=== PATIENT | male | born 1935 | race Caucasian/White ===

== ENCOUNTER 2017-06-20 22:12 | Emergency (ER) | payer MEDICARE, BC ==
[2017-06-20 22:18] VITALS: BP 169/74
[2017-06-20] MEDS ORDERED: Ketorolac 30 MG/ML SDV IM ONE (22:37)
[2017-06-20] MEDS ORDERED: Acetaminophen/HYDROcodone 325-5 MG Tab PO ONE (22:38)
[2017-06-20] MEDS ORDERED: Diazepam 5 MG Tab PO ONE (23:33)
--- NOTE | 2017-06-21 00:14 | EDM.PDOC ---
ED HPI GENERAL MEDICAL PROBLEM - General Chief Complaint: Back Pain or Injury Stated Complaint: MEDICAL [facility]IA [facility] Time Seen by Provider: 06/20/17 22:25 Source of Information: Reports: Patient, EMS Notes Reviewed History Limitations: Reports: No Limitations - History of Present Illness INITIAL COMMENTS - FREE TEXT/NARRATIVE: low back pain radiate to left leg; this is a 81 year old male present to ER via EMS for evaluation. 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 He reports he strained his back, tried two Tylenol without relief, hurt to sit, last night up all night with muscle spasm, did not want to have another night like that, so called Ambulance to transport to ER . denies any fever, chills, nausea, vomiting, diarrhea, chest pain or shortness of breath. 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 left lower back Pain Score (Numeric/FACES): 2 - Related Data Allergies Allergy/AdvReac Type Severity Reaction Status Date / Time No Known Allergies Allergy Verified 06/20/17 22:28 Home Meds: Home Meds Ascorbic Acid [Vitamin C] 500 mg PO DAILY 03/10/16 [History] Aspirin [Adult Low Dose Aspirin EC] 81 mg PO DAILY 03/10/16 [History] Calcium Carbonate [Calcium] 600 mg PO DAILY 03/10/16 [History] Glucosamine/Chondroitin/Vit D3 [Pa Rvtevjss-Whnbeq-Wkk D3 Tab] 1 each PO DAILY 03/10/16 [History] Krill/Sandwich-3/Dha/Epa/Lipids [Krill Oil 300 mg Softgel] 1 each PO DAILY [History] Multivitamin [Multi-Vitamin Daily] 1 each PO DAILY 03/10/16 [History] amLODIPine Besylate [Amlodipine Besylate] 10 mg PO DAILY 03/10/16 [History] atorvaSTATin [Lipitor] 10 mg PO BEDTIME 03/10/16 [History] Past Medical History HEENT History: Reports: Cataract Cardiovascular History: Reports: Aneurysm, High Cholesterol, Hypertension Other Cardiovascular History: chronic distal aortic occlusion PVD Respiratory History: Reports: PE Genitourinary History: Reports: BPH Other Genitourinary History: Frequent night voiding. Musculoskeletal History: Reports: Back Pain, Chronic Endocrine/Metabolic History: Reports: Other (See Below) Other Endocrine/Metabolic History: elevated fasting BS - Infectious Disease History Infectious Disease History: Reports: Measles - Past Surgical History GI Surgical History: Reports: Colonoscopy, Polypectomy Social & Family History - Tobacco Use Smoking Status *Q: Never Smoker Years of Tobacco use: 40 Packs/Tins Daily: 1 Used Tobacco, but Quit: Yes Month Tobacco Last Used: January Second Hand Smoke Exposure: No - Caffeine Use Caffeine Use: Reports: Coffee, Soda - Alcohol Use Days Per Week of Alcohol Use: 7 Number of Drinks Per Day: 3 Total Drinks Per Week: 21 - Recreational Drug Use Recreational Drug Use: No - Living Situation & Occupation Living situation: Reports: , with Family Occupation: Retired (lives in [place] with disabled .) ED ROS GENERAL - Review of Systems Review Of Systems: See Below Constitutional: Reports: No Symptoms HEENT: Reports: No Symptoms Respiratory: Reports: No Symptoms Cardiovascular: Reports: No Symptoms Endocrine: Reports: No Symptoms GI/Abdominal: Reports: No Symptoms : Reports: No Symptoms Musculoskeletal: Reports: Back Pain, Leg Pain, Muscle Pain Skin: Reports: No Symptoms Neurological: Reports: No Symptoms Psychiatric: Reports: No Symptoms Hematologic/Lymphatic: Reports: No Symptoms Immunologic: Reports: No Symptoms ED EXAM, GENERAL - Physical Exam Exam: See Below Exam Limited By: No Limitations General Appearance: Alert, WD/WN, No Apparent Distress Ears: Normal External Exam Nose: Normal Inspection Throat/Mouth: Normal Inspection Head: Atraumatic, Normocephalic Neck: Normal Inspection, Supple, Non-Tender, Full Range of Motion Respiratory/Chest: No Respiratory Distress, Lungs Clear, Normal Breath Sounds Cardiovascular: Regular Rate, Rhythm, No Murmur Peripheral Pulses: 2+: Radial (L), Radial (R) GI/Abdominal: Normal Bowel Sounds, Soft, Non-Tender, No Organomegaly, No Distention, No Abnormal Bruit, No Mass, Pelvis Stable (Male) Exam: Deferred Rectal (Males) Exam: Deferred Back Exam: Normal Inspection, Full Range of Motion, Muscle Spasm (low back with right buttock, muscle spasms noted.) Extremities: Normal Inspection, No Pedal Edema, Normal Capillary Refill, Leg Pain (increased pain with straight leg lift. external rotation of hip. ) Neurological: No Motor/Sensory Deficits Psychiatric: Normal Affect, Normal Mood Skin Exam: Warm Lymphatic: No Adenopathy Course - Vital Signs Last Recorded V/S: Last Vital Signs Temp 35.9 C 06/20/17 22:15 Pulse 75 06/20/17 22:15 Resp 20 06/20/17 22:15 BP 169/74 H 06/20/17 22:15 Pulse Ox 91 L 06/20/17 22:15 - Orders/Labs/Meds Labs: Laboratory Tests 06/20/17 Range/Units 23:29 Urine Color Yellow Urine Appearance Clear Urine pH 6.0 (4.5-8.0) Ur Specific Power 1.015 (1.008-1.030) Urine Protein 100 H (NEGATIVE) mg/dL Urine Glucose (UA) Normal (NEGATIVE) mg/dL Urine Ketones Negative (NEGATIVE) mg/dL Urine Occult Blood Negative (NEGATIVE) Urine Nitrite Negative (NEGAITVE) Urine Bilirubin Negative (NEGATIVE) Urine Urobilinogen Normal (NORMAL) mg/dL Ur Leukocyte Esterase Negative (NEGATIVE) Urine RBC 0-5 (0-5) Urine WBC 0-5 (0-5) Ur Epithelial Cells Rare Amorphous Sediment Not seen Urine Bacteria Few Urine Mucus Not seen Meds: Medications Discontinued Medications Generic Name Dose Route Start Last Admin Trade Name Freq PRN Reason Stop Dose Admin Hydrocodone Bitart/Acetaminophen 1 tab 06/20/17 22:38 06/20/17 22:44 [place] 325-5 Mg PO 06/20/17 22:39 1 tab ONETIME ONE Administration Diazepam 5 mg 06/20/17 23:33 06/20/17 23:43 Valium. PO 06/20/17 23:34 5 mg ONETIME ONE Administration Ketorolac Tromethamine 30 mg 06/20/17 22:37 06/20/17 22:45 Toradol IM 06/20/17 22:38 30 mg ONETIME ONE Administration - Re-Assessments/Exams Free Text/Narrative Re-Assessment/Exam: 06/20/2017 given Toradol 30mg im, Providence 5-325mg; no relief of symptoms given Valium 5mg; symptoms resolved, he is ready for discharge. Departure - Departure Time of Disposition: 00:11 Disposition: Home, Self-Care 01 Condition: Good Clinical Impression: Back pain with left-sided sciatica - Discharge Information Instructions: Sciatica Referrals: PCP,None [Primary Care Provider] - Forms: ED Department Discharge Care Plan Goals: back pain with left sided sciatica -rest -avoid bending, lifting over 10 pounds or twisting for the next 5 days -may use ice or heat -may use over the counter Tylenol or Motrin for pain -Script; Valium 5mg every 8 hours as needed for muscle spasm. Follow up with Primary Care Provider on Thursday for recheck return to ER or Urgent Care if muscle spasms return. - Problem List & Annotations (1) Back pain with left-sided sciatica SNOMED Code(s): 631618562 Code(s): M54.32 - SCIATICA, LEFT SIDE Status: Acute Priority: High - Problem List Review Problem List Initiated/Reviewed/Updated: Yes - Assessment/Plan Plan: back pain with left sided sciatica -rest -avoid bending, lifting over 10 pounds or twisting for the next 5 days -may use ice or heat -may use over the counter Tylenol or Motrin for pain -Script; Valium 5mg every 8 hours as needed for muscle spasm. Follow up with Primary Care Provider on Thursday for recheck return to ER or Urgent Care if muscle spasms return.
== END 2017-06-21 00:29 | disposition home or self-care (01) ==
LOC: JP.ED 22:12
DX: M54.42 Lumbago with sciatica, left side (principal); I10 Essential (primary) hypertension; E78.00 Pure hypercholesterolemia, unspecified; Z87.891 Personal history of nicotine dependence; Z79.82 Long term (current) use of aspirin; Z79.899 Other long term (current) drug therapy
CPT/HCPCS: 81001; 96372; 99284; A9270; J1885; 99283

== ENCOUNTER 2020-12-25 08:52 | Inpatient (IN) | payer MEDICARE ==
[2020-12-25] MEDS ORDERED: Diltiazem 25 MG/5 ML SDV IVPUSH ONE (08:59)
[2020-12-25] MEDS ORDERED: Furosemide 40 MG/4 ML VIAL IVPUSH ONE ×2 (08:59→17:42)
--- NOTE | 2020-12-25 09:11 | EDM.PDOC ---
ED HPI GENERAL MEDICAL PROBLEM - General Chief Complaint: Cardiovascular Problem Stated Complaint: MEDICAL Time Seen by Provider: 12/25/20 08:52 Source of Information: Reports: Patient, EMS History Limitations: Reports: No Limitations - History of Present Illness INITIAL COMMENTS - FREE TEXT/NARRATIVE: 85-year-old gentleman arrives by ambulance with increasing shortness of breath over the past 24 hours. He has had symptoms of congestive heart failure, has been treated with Lasix and nighttime oxygen and is following with his primary provider fairly closely. They are trying to get his lower extremity edema reduced as well. Over the past 12 to 24 hours, he has been more short of breath than usual, had to call the ambulance this morning. They found him with O2 saturations in the low to mid 80s, increased respiratory effort, and in atrial fibrillation with RVR. Patient denies any pain, his only concern is shortness of breath. No fevers or chills. Onset: Gradual Duration: Chronic (Symptoms are chronic but much worse over the past 24 hours) Improves with: Reports: None Worsens with: Reports: None (Denies worsening with lying down) Associated Symptoms: Reports: Malaise, Shortness of Breath, Weakness. Denies: Confusion, Chest Pain, Cough, Fever/Chills - Related Data Allergies Allergy/AdvReac Type Severity Reaction Status Date / Time No Known Allergies Allergy Verified 06/20/17 22:28 Home Meds: Home Meds Ascorbic Acid [Vitamin C] 500 mg PO DAILY 03/10/16 [History] Aspirin [Adult Low Dose Aspirin EC] 81 mg PO DAILY 03/10/16 [History] Calcium Carbonate [Calcium] 600 mg PO DAILY 03/10/16 [History] Glucosamine/Chondroitin/Vit D3 [Pa Koeuvhpq-Rozmjm-Leo D3 Tab] 1 each PO DAILY 03/10/16 [History] Krill/Louise-3/Dha/Epa/Lipids [Krill Oil 300 mg Softgel] 1 each PO DAILY 03/10/16 [History] Multivitamin [Multi-Vitamin Daily] 1 each PO DAILY 03/10/16 [History] amLODIPine Besylate [Amlodipine Besylate] 10 mg PO DAILY 03/10/16 [History] atorvaSTATin [Lipitor] 10 mg PO BEDTIME 03/10/16 [History] Furosemide 40 mg PO DAILY 12/25/20 [History] Omeprazole 40 mg PO BID 12/25/20 [History] Rivaroxaban [Xarelto] 20 mg PO DAILY 12/25/20 [History] Tamsulosin [Flomax] 0.4 mg PO DAILY 12/25/20 [History] lisinopriL [Lisinopril] 10 mg PO DAILY 12/25/20 [History] Past Medical History HEENT History: Reports: Cataract Cardiovascular History: Reports: Aneurysm, High Cholesterol, Hypertension Other Cardiovascular History: chronic distal aortic occlusion PVD Respiratory History: Reports: PE Genitourinary History: Reports: BPH Other Genitourinary History: Frequent night voiding. Musculoskeletal History: Reports: Back Pain, Chronic Endocrine/Metabolic History: Reports: Other (See Below) Other Endocrine/Metabolic History: elevated fasting BS - Infectious Disease History Infectious Disease History: Reports: Measles - Past Surgical History GI Surgical History: Reports: Colonoscopy, Polypectomy Social & Family History - Tobacco Use Tobacco Use Status *Q: Never Tobacco User - Caffeine Use Caffeine Use: Reports: Coffee - Recreational Drug Use Recreational Drug Use: No - Living Situation & Occupation Living situation: Reports: , with Family Occupation: Retired (lives in [place] with disabled .) ED ROS GENERAL - Review of Systems Review Of Systems: See Below Constitutional: Reports: Malaise. Denies: Fever, Chills HEENT: Denies: Throat Pain, Vision Change Respiratory: Reports: Shortness of Breath, Cough Cardiovascular: Reports: Palpitations. Denies: Chest Pain GI/Abdominal: Reports: No Symptoms. Denies: Nausea, Vomiting : Reports: No Symptoms Skin: Denies: Pallor Neurological: Reports: Weakness. Denies: Headache Psychiatric: Reports: No Symptoms ED EXAM, GENERAL - Physical Exam Exam: See Below Exam Limited By: No Limitations General Appearance: Alert, Anxious, Mild Distress Eye Exam: Bilateral Eye: EOMI Throat/Mouth: Normal Inspection Respiratory/Chest: Respiratory Distress (Mild respiratory distress without oxygen,), Rales (Basilar rales bilaterally) Cardiovascular: Tachycardia, Irregularly Irregular GI/Abdominal: Soft, Non-Tender Extremities: Pedal Edema (1+ pitting edema, symmetric both lower extremities) Neurological: Alert, Oriented #1 Interpretation Rhythm: A-Fib Rate (Beats/Min): 140 EKG Interpretation Comments: Atrial fibrillation with RVR. Course - Vital Signs Last Recorded V/S: Last Vital Signs Temp 97.5 F 12/25/20 13:00 Pulse 128 H 12/25/20 14:00 Resp 27 H 12/25/20 14:00 BP 148/65 H 12/25/20 14:00 Pulse Ox 92 L 12/25/20 14:00 - Orders/Labs/Meds Orders: Active Orders 24 hr Category Date Time Status CULTURE BLOOD [BC] Stat Lab 12/25/20 12:00 Received CULTURE BLOOD [BC] Stat Lab 12/25/20 12:00 Received TROPONIN I [CHEM] Stat Lab 12/25/20 15:00 Ordered Diltiazem [Cardizem] 100 mg Med 12/25/20 10:45 Active Sodium Chloride 0.9% [Normal Saline] 100 ml IV TITRATE Doxycycline [Vibramycin] 100 mg Med 12/25/20 12:00 Active Sodium Chloride 0.9% [Normal Saline] 100 ml IV Q12H Blood Culture x2 Reflex Set [OM.PC] Urgent Oth 12/25/20 11:26 Ordered EKG 12 Lead [EK] Routine Ther 12/25/20 08:58 Stop Req Medication Orders Acetaminophen (Acetaminophen 325 Mg Tab) 650 mg PO Q4H PRN PRN Reason: Pain (Mild 1-3)/fever Albuterol (Albuterol 0.083% 2.5 Mg/3 Ml Neb Soln) 2.5 mg NEB Q4H PRN PRN Reason: Shortness Of Breath/wheezing Aspirin (Aspirin 81 Mg Tab.Ec) 81 mg PO DAILY [facility] Last Admin: 12/25/20 14:29 Dose: 81 mg Documented by: PIO Diltiazem HCl 100 mg/ Sodium (Chloride) 100 mls @ 5 mls/hr IV TITRATE JACQUELINE; Protocol Stop: 12/25/20 17:30 Last Titration: 12/25/20 12:25 Dose: 15 mg/hr, 15 mls/hr Documented by: Titration: 12/25/20 11:27 Dose: 10 mg/hr, 10 mls/hr Documented by: Admin: 12/25/20 10:53 Dose: 5 mg/hr, 5 mls/hr Documented by: KYLE Doxycycline Hyclate 100 mg/ (Sodium Chloride) 100 mls @ 100 mls/hr IV Q12H [facility] Last Admin: 12/25/20 13:07 Dose: 100 mls/hr Documented by: PIO Diltiazem HCl 125 mg/ Sodium (Chloride) 125 mls @ 5 mls/hr IV TITRATE JACQUELINE; Protocol Sodium Chloride (Normal Saline) 1,000 mls @ 125 mls/hr IV ASDIRECTED JACQUELINE Ceftriaxone Sodium 1 gm/ (Sodium Chloride) 50 mls @ 100 mls/hr IV Q24H JACQUELINE Ondansetron HCl (Ondansetron 4 Mg/2 Ml Sdv) 4 mg IV Q4H PRN PRN Reason: Nausea/Vomiting Pantoprazole Sodium (Pantoprazole 40 Mg Tab.Cr) 40 mg PO BIDAC JACQUELINE Polyethylene Glycol (Polyethylene Glycol 3350 Powder 17 Gm Packet) 17 gm PO DAILY PRN PRN Reason: Constipation Rivaroxaban (Rivaroxaban 15 Mg Tab) 15 mg PO DAILY@0800 JACQUELINE Sodium Chloride (Sodium Chloride 0.9% 10 Ml Syringe) 10 ml FLUSH ASDIRECTED PRN PRN Reason: Keep Vein Open Tamsulosin HCl (Tamsulosin 0.4 Mg Cap.Er) 0.4 mg PO DAILY [facility] Labs: Laboratory Tests 12/25/20 12/25/20 12/25/20 Range/Units 09:10 09:10 11:25 WBC 5.4 (4.5-11.0) K/uL RBC 4.76 (4.30-5.90) M/uL Hgb 15.6 H (12.0-15.0) g/dL Hct 47.9 (40.0-54.0) % MCV 101 H (80-98) fL MCH 33 H (27-31) pg MCHC 33 (32-36) % Plt Count 143 L (150-400) K/uL Neut % (Auto) 79 H (36-66) % Lymph % (Auto) 11 L (24-44) % [place] % (Auto) 10 H (2-6) % Eos % (Auto) 0 L (2-4) % Baso % (Auto) 0 (0-1) % Sodium 144 (140-148) mmol/L Potassium 4.1 (3.6-5.2) mmol/L Chloride 99 L (100-108) mmol/L Carbon Dioxide 28 (21-32) mmol/L Anion Gap 21.1 H (5.0-14.0) mmol/L BUN 24 H (7-18) mg/dL Creatinine 1.8 H (0.8-1.3) mg/dL Est Cr Clr Drug Dosing 31.38 mL/min Estimated GFR (MDRD) 36 L (>60) Glucose 138 H (74-106) mg/dL Lactic Acid (0.4-2.0) mmol/L Calcium 9.1 (8.5-10.1) mg/dL Total Bilirubin 1.6 H (0.2-1.0) mg/dL AST 48 H (15-37) U/L ALT 53 (12-78) U/L Alkaline Phosphatase 117 H (46-116) U/L Troponin I 0.067 H* (0.000-0.056) ng/mL C-Reactive Protein (0.0-0.3) mg/dL NT-Pro-B Natriuret Pep 70524 H (5-450) pg/mL Total Protein 6.7 (6.4-8.2) g/dL Albumin 3.1 L (3.4-5.0) g/dL Globulin 3.6 H (2.3-3.5) g/dL Albumin/Globulin Ratio 0.9 L (1.2-2.2) Procalcitonin ng/mL 12/25/20 12/25/20 12/25/20 Range/Units 11:27 11:27 11:27 WBC (4.5-11.0) K/uL RBC (4.30-5.90) M/uL Hgb (12.0-15.0) g/dL Hct (40.0-54.0) % MCV (80-98) fL MCH (27-31) pg MCHC (32-36) % Plt Count (150-400) K/uL Neut % (Auto) (36-66) % Lymph % (Auto) (24-44) % [place] % (Auto) (2-6) % Eos % (Auto) (2-4) % Baso % (Auto) (0-1) % Sodium (140-148) mmol/L Potassium (3.6-5.2) mmol/L Chloride (100-108) mmol/L Carbon Dioxide (21-32) mmol/L Anion Gap (5.0-14.0) mmol/L BUN (7-18) mg/dL Creatinine (0.8-1.3) mg/dL Est Cr Clr Drug Dosing mL/min Estimated GFR (MDRD) (>60) Glucose (74-106) mg/dL Lactic Acid 2.1 H (0.4-2.0) mmol/L Calcium (8.5-10.1) mg/dL Total Bilirubin (0.2-1.0) mg/dL AST (15-37) U/L ALT (12-78) U/L Alkaline Phosphatase (46-116) U/L Troponin I (0.000-0.056) ng/mL C-Reactive Protein 2.98 H (0.0-0.3) mg/dL NT-Pro-B Natriuret Pep (5-450) pg/mL Total Protein (6.4-8.2) g/dL Albumin (3.4-5.0) g/dL Globulin (2.3-3.5) g/dL Albumin/Globulin Ratio (1.2-2.2) Procalcitonin < 0.05 ng/mL Meds: Medications Generic Name Dose Route Start Last Admin Trade Name Freq PRN Reason Stop Dose Admin Acetaminophen 650 mg 12/25/20 12:46 Acetaminophen 325 Mg Tab PO Q4H PRN Pain (Mild 1-3)/fever Albuterol 2.5 mg 12/25/20 12:46 Albuterol 0.083% 2.5 Mg/3 Ml Neb Soln NEB Q4H PRN Shortness Of Breath/wheezing Aspirin 81 mg 12/25/20 13:30 12/25/20 14:29 Aspirin 81 Mg Tab.Ec PO 81 mg DAILY JACQUELINE Administration Diltiazem HCl 100 mg/ Sodium 100 mls @ 5 mls/hr 12/25/20 10:45 12/25/20 12:25 Chloride IV 12/25/20 17:30 15 mg/hr TITRATE JACQUELINE 15 mls/hr Titration Protocol 5 MG/HR Doxycycline Hyclate 100 mg/ 100 mls @ 100 mls/hr 12/25/20 12:00 12/25/20 13:07 Sodium Chloride IV 100 mls/hr Q12H JACQUELINE Administration Diltiazem HCl 125 mg/ Sodium 125 mls @ 5 mls/hr 12/25/20 18:00 Chloride IV TITRATE JACQUELINE Protocol Sodium Chloride 1,000 mls @ 125 mls/hr 12/25/20 12:46 Normal Saline IV ASDIRECTED JACQUELINE Ceftriaxone Sodium 1 gm/ 50 mls @ 100 mls/hr 12/26/20 11:30 Sodium Chloride IV Q24H JACQUELINE Ondansetron HCl 4 mg 12/25/20 12:46 Ondansetron 4 Mg/2 Ml Sdv IV Q4H PRN Nausea/Vomiting Pantoprazole Sodium 40 mg 12/25/20 16:30 Pantoprazole 40 Mg Tab.Cr PO BIDAC JACQUELINE Polyethylene Glycol 17 gm 12/25/20 12:46 Polyethylene Glycol 3350 Powder 17 Gm Packet PO DAILY PRN Constipation Rivaroxaban 15 mg 12/26/20 08:00 Rivaroxaban 15 Mg Tab PO DAILY@0800 JACQUELINE Sodium Chloride 10 ml 12/25/20 12:46 Sodium Chloride 0.9% 10 Ml Syringe FLUSH ASDIRECTED PRN Keep Vein Open Tamsulosin HCl 0.4 mg 12/26/20 09:00 Tamsulosin 0.4 Mg Cap.Er PO DAILY JACQUELINE Discontinued Medications Generic Name Dose Route Start Last Admin Trade Name Freq PRN Reason Stop Dose Admin Diltiazem HCl 20 mg 12/25/20 08:59 12/25/20 09:04 Diltiazem 25 Mg/5 Ml Sdv IVPUSH 12/25/20 09:00 20 mg ONETIME ONE Administration Furosemide 80 mg 12/25/20 08:59 12/25/20 09:07 Furosemide 40 Mg/4 Ml Vial IVPUSH 12/25/20 09:00 80 mg ONETIME ONE Administration Ceftriaxone Sodium 1 gm/ 50 mls @ 100 mls/hr 12/25/20 11:30 12/25/20 11:48 Sodium Chloride IV 100 mls/hr Q24H JACQUELINE Administration Propofol 200 mg 12/25/20 09:57 12/25/20 10:30 Propofol 200 Mg/20 Ml Sdv IVPUSH 12/25/20 09:58 200 mg ONETIME ONE Administration - Re-Assessments/Exams Free Text/Narrative Re-Assessment/Exam: 12/25/20 09:18 IV was started by EMS, patient will be given 80 mg of IV Lasix, 20 mg of IV Cardizem after an EKG confirmed atrial fibrillation with RVR. Reviewed his recent echocardiogram which actually was not too bad, ejection fraction around 40%. Portable chest x-ray obtained. Patient needed supplemental nasal cannula oxygen to keep saturations in the mid 90s. He felt much better with the oxygen. EKG from the clinic will be faxed. 12/25/20 09:24 EKG from the clinic showed multifocal atrial tachycardia, after the 20 mg of IV Cardizem the patient converted to a look like atrial flutter with a rate of 130. He was feeling better. A second EKG was obtained. Chest x-ray was felt to be more typical of right-sided pneumonia than failure. 12/25/20 10:20 After consultation with the hospitalist service, Dr. Wasserman assisted with elective synchronized cardioversion. Unfortunately he converted to atrial fibrillation but did have better rate control after the Cardizem. CBC returned relatively normal, troponin was mildly elevated probably due to stress from the tachycardia, and patient had moderate renal insufficiency. His renal function is not much different than 4 years ago, however there was some improvement in the interim. Dr. Wasserman will place the patient in the hospital for rate control and diuresis, further evaluation if needed. Departure - Departure Time of Disposition: 13:03 Disposition: Admitted As Inpatient 65 Clinical Impression: Atrial fibrillation/flutter, Atrial flutter with rapid ventricular response Congestive heart failure Qualifiers: Heart failure type: unspecified Heart failure chronicity: acute on chronic Qualified Code(s): I50.9 - Heart failure, unspecified Pneumonia involving right lung Qualifiers: Pneumonia type: due to unspecified organism Lung location: lower lobe of lung Qualified Code(s): J18.9 - Pneumonia, unspecified organism Sepsis Event Note (ED) - Evaluation Sepsis Screening Result: Possible Sepsis Risk - Focused Exam Vital Signs: Vital Signs Temp Pulse Resp BP Pulse Ox Pulse Ox 12/25/20 10:56 94 L 12/25/20 10:40 96.4 F L 116 H 23 H 124/100 H 94 L 12/25/20 08:56 97.8 F 142 H 32 H 142/96 H 85 L - My Orders Last 24 Hours: My Active Orders 12/25/20 08:58 EKG 12 Lead [EK] Routine 12/25/20 10:45 Diltiazem [Cardizem] 100 mg Sodium Chloride 0.9% [Normal Saline] 100 ml IV TITRATE - Assessment/Plan Last 24 Hours: My Active Orders 12/25/20 08:58 EKG 12 Lead [EK] Routine 12/25/20 10:45 Diltiazem [Cardizem] 100 mg Sodium Chloride 0.9% [Normal Saline] 100 ml IV TITRATE
--- NOTE | 2020-12-25 09:36 | CR ---
CHEST: Portable 12/25/2020 at 9:24 AM CLINICAL HISTORY:SOB COMPARISON:2016 FINDINGS: The heart is enlarged. Pulmonary vascular disease normal. There are atherosclerotic changes in the aorta. There is a diffuse right lower lobe pneumonic infiltrate. There is a small right effusion. Streaky density at the left lung base may be some scarring or atelectasis. Impression: Right lower lobe pneumonia Small right pleural effusion Cardiomegaly
[2020-12-25] MEDS ORDERED: Propofol 200 MG/20 ML SDV IVPUSH ONE (09:57)
[2020-12-25] MEDS: Diltiazem 100 MG in Sodium Chloride 0.9% 100 ML IV SCH ×2 (10:53→16:58)
[2020-12-25] MEDS ORDERED: cefTRIAXone 1 GM in Sodium Chloride 0.9% 50 ML IV SCH (11:30)
--- NOTE | 2020-12-25 11:40 | PCM.HP.2 ---
H&P History of Present Illness - General Date of Service: 12/25/20 Admit Problem/Dx: Admission Diagnosis/Problem Admission Diagnosis/Problem Pneumonia Source of Information: Patient, Provider, RN Notes Reviewed History Limitations: Reports: No Limitations - History of Present Illness Initial Comments - Free Text/Narative: Mr. Nolan is an 85-year-old gentleman who was admitted through the emergency department with hypoxia and atrial fibrillation with rapid ventricular response. He reports that he has had progressive difficulty with shortness of breath over the past 2 months and has been seen on a regular basis by his primary care provider Dr. Latham. Echocardiogram was obtained which did show decreased left ventricular systolic function and estimated ejection fraction of 35 to 40%, mild diastolic dysfunction, and biatrial enlargement. Peripheral edema has responded to diuretic therapy but he is experienced ongoing difficulty with shortness of breath. Lexiscan Myoview study has been scheduled for evaluation of underlying ischemic disease. Kidney function has declined somewhat over the past few months, in October creatinine was 1.31 and it has gradually increased since then, today it is 1.8 with a GFR of just above 30. He does have a smoking history but stopped over 20 years ago and denies diagnosis of COPD or asthma. He also has a past history of bilateral pulmonary emboli and has been on oral anticoagulation over the past 5 years. On an outpatient basis he has been noted to have irregular heart rhythm, but was not felt to have atrial fibrillation. Over the past 2 days he has noted progressive increase in shortness of breath to the point where he was up all night feeling short of breath at rest. On evaluation in the emergency department chest x-ray suggests possible right lung infiltrate. He was found to be in atrial fibrillation with rapid ventricular response. Attempted cardioversion was unsuccessful. - Related Data Allergies/Adverse Reactions: Allergies Allergy/AdvReac Type Severity Reaction Status Date / Time No Known Allergies Allergy Verified 06/20/17 22:28 Home Medications: Home Meds Ascorbic Acid [Vitamin C] 500 mg PO DAILY 03/10/16 [History] Aspirin [Adult Low Dose Aspirin EC] 81 mg PO DAILY 03/10/16 [History] Calcium Carbonate [Calcium] 600 mg PO DAILY 03/10/16 [History] Glucosamine/Chondroitin/Vit D3 [Pa Cpplbegt-Kigxdq-Uzf D3 Tab] 1 each PO DAILY 03/10/16 [History] Krill/[place]-3/Dha/Epa/Lipids [Krill Oil 300 mg Softgel] 1 each PO DAILY 03/10/16 [History] Multivitamin [Multi-Vitamin Daily] 1 each PO DAILY 03/10/16 [History] amLODIPine Besylate [Amlodipine Besylate] 10 mg PO DAILY 03/10/16 [History] atorvaSTATin [Lipitor] 10 mg PO BEDTIME 03/10/16 [History] Furosemide 40 mg PO DAILY 12/25/20 [History] Omeprazole 40 mg PO BID 12/25/20 [History] Rivaroxaban [Xarelto] 20 mg PO DAILY 12/25/20 [History] Tamsulosin [Flomax] 0.4 mg PO DAILY 12/25/20 [History] lisinopriL [Lisinopril] 10 mg PO DAILY 12/25/20 [History] Past Medical History HEENT History: Reports: Cataract Cardiovascular History: Reports: Aneurysm, High Cholesterol, Hypertension Other Cardiovascular History: chronic distal aortic occlusion PVD Respiratory History: Reports: PE Genitourinary History: Reports: BPH Other Genitourinary History: Frequent night voiding. Musculoskeletal History: Reports: Back Pain, Chronic Endocrine/Metabolic History: Reports: Other (See Below) Other Endocrine/Metabolic History: elevated fasting BS - Infectious Disease History Infectious Disease History: Reports: Measles - Past Surgical History GI Surgical History: Reports: Colonoscopy, Polypectomy Social & Family History - Tobacco Use Tobacco Use Status *Q: Never Tobacco User - Caffeine Use Caffeine Use: Reports: Coffee - Recreational Drug Use Recreational Drug Use: No - Living Situation & Occupation Living situation: Reports: , with Family Occupation: Retired (lives in [place] with disabled .) H&P Review of Systems - Review of Systems: Review Of Systems: See Below General: Reports: Malaise, Weakness, Fatigue. Denies: Fever, Chills HEENT: Reports: No Symptoms Pulmonary: Reports: Shortness of Breath. Denies: Wheezing, Pleuritic Chest Pain, Cough, Sputum, Hemoptysis Cardiovascular: Reports: Dyspnea on Exertion, Orthopnea, PND. Denies: Chest Pain, Palpitations, Edema, Lightheadedness Gastrointestinal: Reports: No Symptoms Genitourinary: Reports: No Symptoms Musculoskeletal: Reports: No Symptoms Skin: Reports: No Symptoms Psychiatric: Reports: No Symptoms Neurological: Reports: No Symptoms Hematologic/Lymphatic: Reports: No Symptoms Immunologic: Reports: No Symptoms Exam - Exam Exam: See Below - Vital Signs Vital Signs: Last Vital Signs Temp 96.4 F L 12/25/20 10:40 Pulse 114 H 12/25/20 11:35 Resp 26 H 12/25/20 11:35 BP 129/78 12/25/20 11:35 Pulse Ox 95 12/25/20 11:35 Weight: 225 lb - Exam Quality Assessment: Supplemental Oxygen, DVT Prophylaxis General: Alert, Oriented, Cooperative, Moderate Distress HEENT: Conjunctiva Clear, Hearing Intact, Mucosa Moist & [place], Normal Nasal Septum, Posterior Pharynx Clear, Pupils Equal Neck: Supple, Trachea Midline, +2 Carotid Pulse wo Bruit Lungs: Normal Respiratory Effort, Rales. No: Rhonchi, Wheezing Cardiovascular: Normal S1, Normal S2, Irregular Rhythm, Tachycardia. No: Systolic Murmur, Diastolic Murmur GI/Abdominal Exam: Soft, Non-Tender, No Organomegaly, No Distention Back Exam: Normal Inspection, Full Range of Motion Extremities: Non-Tender, No Pedal Edema Skin: Warm, Dry, Intact Neurological: Cranial Nerves Intact, Strength Equal Bilateral, Normal Speech, Normal Tone, Sensation Intact. No: Focal Deficit Neuro Extensive - Mental Status: Alert, Oriented x3, Normal Mood/Affect, Normal Cognition, Memory Intact - Patient Data Lab Results Last 24 hrs: Laboratory Results - last 24 hr 12/25/20 12/25/20 Range/Units 09:10 09:10 WBC 5.4 (4.5-11.0) K/uL RBC 4.76 (4.30-5.90) M/uL Hgb 15.6 H (12.0-15.0) g/dL Hct 47.9 (40.0-54.0) % MCV 101 H (80-98) fL MCH 33 H (27-31) pg MCHC 33 (32-36) % Plt Count 143 L (150-400) K/uL Neut % (Auto) 79 H (36-66) % Lymph % (Auto) 11 L (24-44) % [place] % (Auto) 10 H (2-6) % Eos % (Auto) 0 L (2-4) % Baso % (Auto) 0 (0-1) % Sodium 144 (140-148) mmol/L Potassium 4.1 (3.6-5.2) mmol/L Chloride 99 L (100-108) mmol/L Carbon Dioxide 28 (21-32) mmol/L Anion Gap 21.1 H (5.0-14.0) mmol/L BUN 24 H (7-18) mg/dL Creatinine 1.8 H (0.8-1.3) mg/dL Est Cr Clr Drug Dosing 31.38 mL/min Estimated GFR (MDRD) 36 L (>60) Glucose 138 H (74-106) mg/dL Calcium 9.1 (8.5-10.1) mg/dL Total Bilirubin 1.6 H (0.2-1.0) mg/dL AST 48 H (15-37) U/L ALT 53 (12-78) U/L Alkaline Phosphatase 117 H (46-116) U/L Troponin I 0.067 H* (0.000-0.056) ng/mL Total Protein 6.7 (6.4-8.2) g/dL Albumin 3.1 L (3.4-5.0) g/dL Globulin 3.6 H (2.3-3.5) g/dL Albumin/Globulin Ratio 0.9 L (1.2-2.2) Result Diagrams: 12/25/20 09:10 12/25/20 09:10 Sepsis Event Note - Evaluation Sepsis Screening Result: Possible Sepsis Risk - Focused Exam Vital Signs: Vital Signs Temp Pulse Resp BP Pulse Ox Pulse Ox 12/25/20 11:35 114 H 26 H 129/78 95 12/25/20 10:56 94 L 12/25/20 10:40 96.4 F L 116 H 23 H 124/100 H 94 L 12/25/20 08:56 97.8 F 142 H 32 H 142/96 H 85 L *Q Meaningful Use (ADM) - VTE *Q VTE Pharmacological Contraindications *Q: High INR Value - VTE Risk Assess *Q Each Risk Factor Represents 1 Point: Obesity ( BMI > 25 kg/m2), Congestive heart failure (CHF) Total Score 1 Point Risk Factors: 2 Each Risk Factor Represents 2 Points: None Total Score 2 Point Risk Factors: 0 Each Risk Factor Represents 3 Points: Age 75 Years or Greater Total Score 3 Point Risk Factors: 3 Each Risk Factor Represents 5 Points: None Total Score 5 Point Risk Factors: 0 Venous Thromboembolism Risk Factor Score *Q: 5 Problem List Initiated/Reviewed/Updated: Yes Orders Last 24hrs: Active Orders 24 hr Category Date Time Status Patient Status Manage Transfer [TRANSFER] Routine ADT 12/25/20 11:31 Ordered EKG Documentation Completion [RC] ASDIRECTED Care 12/25/20 08:59 Active C-REACTIVE PROTEIN [CHEM] Stat Lab 12/25/20 11:27 Ordered CULTURE BLOOD [BC] Stat Lab 12/25/20 11:27 Ordered CULTURE BLOOD [BC] Stat Lab 12/25/20 11:27 Ordered LACTIC ACID [CHEM] Stat Lab 12/25/20 11:27 Ordered PRO B-TYPE NATRIUR PEPT,BNPPRO [CHEM] Urgent Lab 12/25/20 11:25 Ordered PROCALCITONIN [CHEM] Stat Lab 12/25/20 11:27 Ordered TROPONIN I [CHEM] Stat Lab 12/25/20 15:00 Ordered TROPONIN I [CHEM] Stat Lab 12/25/20 21:00 Ordered Diltiazem [Cardizem] 100 mg Med 12/25/20 10:45 Active Sodium Chloride 0.9% [Normal Saline] 100 ml IV TITRATE Doxycycline [Vibramycin] 100 mg Med 12/25/20 11:30 Ordered Sodium Chloride 0.9% [Normal Saline] 100 ml IV Q12HR cefTRIAXone [Rocephin] 1 gm Med 12/25/20 11:30 Active Sodium Chloride 0.9% [Normal Saline] 50 ml IV Q24H Blood Culture x2 Reflex Set [OM.PC] Urgent Oth 12/25/20 11:26 Ordered Resuscitation Status Routine Resus Stat 12/25/20 11:35 Ordered EKG 12 Lead [EK] Routine Ther 12/25/20 08:58 Ordered Medication Orders Diltiazem HCl 100 mg/ Sodium (Chloride) 100 mls @ 5 mls/hr IV TITRATE JACQUELINE; Protocol Last Titration: 12/25/20 11:27 Dose: 10 mg/hr, 10 mls/hr Documented by: Admin: 12/25/20 10:53 Dose: 5 mg/hr, 5 mls/hr Documented by: KYLE Ceftriaxone Sodium 1 gm/ (Sodium Chloride) 50 mls @ 100 mls/hr IV Q24H JACQUELINE Doxycycline Hyclate 100 mg/ (Sodium Chloride) 100 mls @ 100 mls/hr IV Q12HR JACQUELINE Assessment/Plan Comment:: ASSESSMENT AND PLAN ATRIAL FIBRILLATION WITH RAPID VENTRICULAR RESPONSE-no prior history of atrial fibrillation although he has been noted to have irregular heart rhythm on an outpatient basis. Known systolic and diastolic congestive heart failure, based on recent echocardiogram report. Failed attempt at cardioversion while in the emergency department. -Continuous infusion of diltiazem -Add metoprolol 12.5 mg p.o. every 6 hours -Monitor in ICU -Consider amiodarone infusion COMBINED DIASTOLIC AND SYSTOLIC CONGESTIVE HEART FAILURE-recent history of progressive dyspnea and hypoxia. Documented heart failure on recent echocardiogram as noted above. -Resume YEIMY inhibitor therapy if blood pressure remains stable -IV furosemide for diuresis -Metoprolol as above -Outpatient evaluation for ischemic disease, consider obtaining Myoview study while hospitalized POSSIBLE PNEUMONIA-possible infiltrate noted right lung on chest x-ray. He has had no fevers, white blood cell count is normal, and initial procalcitonin level within normal range -Blood cultures pending -Continue antibiotic therapy with ceftriaxone and doxycycline, pending further evaluation -Repeat procalcitonin level in a.m., consider stopping antibiotic therapy if it remains within normal range -Consider CT scan of the chest ACUTE ON CHRONIC HYPOXIC RESPIRATORY FAILURE-likely secondary to congestive heart failure and atrial fibrillation with rapid ventricular response -Supplemental oxygen as needed -Management of underlying conditions as above MILD ELEVATION IN TROPONIN-likely secondary to demand ischemia in the setting of underlying kidney disease and atrial fibrillation -Serial troponin levels CHRONIC KIDNEY DISEASE STAGE IIIB -Closely monitor renal function and urine output HISTORY OF PULMONARY EMBOLI -Continue outpatient oral anticoagulation MAINTENANCE ISSUES -DVT prophylaxis; current therapy with Xarelto should provide adequate DVT prophylaxis -GI prophylaxis; not indicated -[place] catheter; not indicated -Nutrition; 2 g sodium diet -Nicotine dependence; not required CODE STATUS-DNR/DNI ADMISSION STATUS-patient will be admitted to inpatient status, expect at least a 2 night hospital stay for evaluation and management of problems as outlined above. At the time of this admission I do not reasonably expected evaluation and management of this problem will require more than a 96 hour hospital stay. DISPOSITION-anticipate discharge to home after the hospital stay. PRIMARY CARE PROVIDER-Dr. Latham - Mortality Measure Prognosis:: Poor
[2020-12-25] MEDS ORDERED: Polyethylene Glycol 3350 Powder 17 GM Packet PO PRN (12:46)
[2020-12-25] MEDS ORDERED: Sodium Chloride 0.9% 1,000 ML IV SCH (12:46)
[2020-12-25] MEDS ORDERED: Acetaminophen 325 MG Tab PO PRN (12:46)
[2020-12-25] MEDS ORDERED: Non-Formulary Medication 1 Each (Omeprazole [Omeprazole] 40 MG Capsule.Dr) PO SCH (12:46)
[2020-12-25] MEDS ORDERED: Albuterol 0.083% 2.5 MG/3 ML Neb Soln NEB PRN (12:46)
[2020-12-25] MEDS ORDERED: Sodium Chloride 0.9% 10 ML Syringe FLUSH PRN (12:46)
[2020-12-25] MEDS ORDERED: Ondansetron 4 MG/2 ML SDV IV PRN (12:46)
[2020-12-25] MEDS: Doxycycline 100 MG in Sodium Chloride 0.9% 100 ML IV SCH ×2 (13:07→23:24)
[2020-12-25] MEDS: Aspirin 81 MG Tab.EC PO SCH (14:29)
[2020-12-25] MEDS: Pantoprazole 40 MG Tab.CR PO SCH (16:23)
[2020-12-25] MEDS ORDERED: Rivaroxaban 15 MG Tab PO SCH (17:00)
[2020-12-25] MEDS: Diltiazem 125 MG in Sodium Chloride 0.9% 100 ML IV SCH (17:00)
[2020-12-25] MEDS: Metoprolol Tartrate 25 MG Tab PO SCH ×2 (17:15→22:06)
[2020-12-25 17:25] LABS: CORONAVIRUS COVID-19 NAA NEGATIVE (NEGATIVE)
[2020-12-25] MEDS ORDERED: Magnesium Sulfate/Water 2 GM/50 ML BAG IV ONE (17:39)
[2020-12-25] MEDS: traZODone 50 MG Tab PO PRN (22:06)
[2020-12-25] MEDS: atorvaSTATin 10 MG Tab PO SCH (22:06)
[2020-12-26] MEDS: Diltiazem 125 MG in Sodium Chloride 0.9% 100 ML IV SCH (00:59)
[2020-12-26] MEDS: Metoprolol Tartrate 25 MG Tab PO SCH ×3 (05:06→17:39)
[2020-12-26] MEDS ORDERED: Potassium Chloride 20 MEQ Tab.ER PO ONE ×3 (06:20→17:00)
[2020-12-26] MEDS ORDERED: Potassium Chloride 20 MEQ, Lidocaine 1% 2 ML in Sodium Chloride 0.9% 100 ML IV ONE (07:30)
[2020-12-26] MEDS: Rivaroxaban 15 MG Tab PO SCH (08:03)
[2020-12-26] MEDS: Pantoprazole 40 MG Tab.CR PO SCH ×2 (08:04→15:51)
[2020-12-26] MEDS: Aspirin 81 MG Tab.EC PO SCH (08:04)
[2020-12-26] MEDS: Tamsulosin 0.4 MG Cap.ER PO SCH (08:04)
[2020-12-26] MEDS ORDERED: Non-Formulary Medication 1 Each (Rivaroxaban [Xarelto] 20 MG Tablet) PO SCH (09:00)
[2020-12-26] MEDS ORDERED: Furosemide 40 MG/4 ML VIAL IVPUSH ONE ×2 (09:00→18:00)
[2020-12-26] MEDS: Magnesium Sulfate/Water 2 GM/50 ML BAG IV SCH ×3 (09:34→21:09)
--- NOTE | 2020-12-26 09:55 | PCM.PN ---
- General Info Date of Service: 12/26/20 Subjective Update: Mr. Nolan has been stable since admission yesterday and reports less shortness of breath with current management. He did convert to sinus rhythm during the night and except for occasional bursts has remained in sinus rhythm since then. CT scan of the chest obtained today shows groundglass infiltrates which could be consistent with pulmonary edema as well as bilateral pleural effusions. Functional Status: Reports: Tolerating Diet, Urinating - Review of Systems General: Reports: Weakness, Fatigue. Denies: Fever, Chills Pulmonary: Reports: Shortness of Breath. Denies: Pleuritic Chest Pain, Cough, Sputum, Hemoptysis, Wheezing Cardiovascular: Reports: Dyspnea on Exertion. Denies: Chest Pain, Palpitations, Orthopnea, PND, Edema, Lightheadedness Gastrointestinal: Reports: No Symptoms Genitourinary: Reports: No Symptoms - Patient Data Vitals - Most Recent: Last Vital Signs Temp 98.1 F 12/26/20 08:00 Pulse 75 12/26/20 09:00 Resp 27 H 12/26/20 09:00 BP 126/72 12/26/20 09:00 Pulse Ox 94 L 12/26/20 08:00 Weight - Most Recent: 210 lb 15.718 oz I&O - Last 24 Hours: Intake & Output 12/25/20 12/26/20 12/26/20 22:59 06:59 14:59 Intake Total 1253 842 212 Output Total 700 500 225 Balance 553 342 -13 Lab Results Last 24 Hours: Laboratory Results - last 24 hr 12/25/20 12/25/20 12/25/20 Range/Units 09:10 11:25 11:27 WBC (4.5-11.0) K/uL RBC (4.30-5.90) M/uL Hgb (12.0-15.0) g/dL Hct (40.0-54.0) % MCV (80-98) fL MCH (27-31) pg MCHC (32-36) % Plt Count (150-400) K/uL Neut % (Auto) (36-66) % Lymph % (Auto) (24-44) % [place] % (Auto) (2-6) % Eos % (Auto) (2-4) % Baso % (Auto) (0-1) % Sodium 144 (140-148) mmol/L Potassium 4.1 (3.6-5.2) mmol/L Chloride 99 L (100-108) mmol/L Carbon Dioxide 28 (21-32) mmol/L Anion Gap 21.1 H (5.0-14.0) mmol/L BUN 24 H (7-18) mg/dL Creatinine 1.8 H (0.8-1.3) mg/dL Est Cr Clr Drug Dosing 31.38 mL/min Estimated GFR (MDRD) 36 L (>60) Glucose 138 H (74-106) mg/dL Lactic Acid 2.1 H (0.4-2.0) mmol/L Calcium 9.1 (8.5-10.1) mg/dL Magnesium (1.8-2.4) mg/dL Total Bilirubin 1.6 H (0.2-1.0) mg/dL AST 48 H (15-37) U/L ALT 53 (12-78) U/L Alkaline Phosphatase 117 H (46-116) U/L Troponin I 0.067 H* (0.000-0.056) ng/mL C-Reactive Protein (0.0-0.3) mg/dL NT-Pro-B Natriuret Pep 04309 H (5-450) pg/mL Total Protein 6.7 (6.4-8.2) g/dL Albumin 3.1 L (3.4-5.0) g/dL Globulin 3.6 H (2.3-3.5) g/dL Albumin/Globulin Ratio 0.9 L (1.2-2.2) Procalcitonin ng/mL Influenza Type A RNA (NEGATIVE) RSV RNA (INAAT) (NEGATIVE) Influenza Type B RNA (NEGATIVE) SARS-CoV-2 RNA (SP) (NEGATIVE) 12/25/20 12/25/20 12/25/20 Range/Units 11:27 11:27 14:10 WBC (4.5-11.0) K/uL RBC (4.30-5.90) M/uL Hgb (12.0-15.0) g/dL Hct (40.0-54.0) % MCV (80-98) fL MCH (27-31) pg MCHC (32-36) % Plt Count (150-400) K/uL Neut % (Auto) (36-66) % Lymph % (Auto) (24-44) % [place] % (Auto) (2-6) % Eos % (Auto) (2-4) % Baso % (Auto) (0-1) % Sodium (140-148) mmol/L Potassium (3.6-5.2) mmol/L Chloride (100-108) mmol/L Carbon Dioxide (21-32) mmol/L Anion Gap (5.0-14.0) mmol/L BUN (7-18) mg/dL Creatinine (0.8-1.3) mg/dL Est Cr Clr Drug Dosing mL/min Estimated GFR (MDRD) (>60) Glucose (74-106) mg/dL Lactic Acid (0.4-2.0) mmol/L Calcium (8.5-10.1) mg/dL Magnesium (1.8-2.4) mg/dL Total Bilirubin (0.2-1.0) mg/dL AST (15-37) U/L ALT (12-78) U/L Alkaline Phosphatase (46-116) U/L Troponin I (0.000-0.056) ng/mL C-Reactive Protein 2.98 H (0.0-0.3) mg/dL NT-Pro-B Natriuret Pep (5-450) pg/mL Total Protein (6.4-8.2) g/dL Albumin (3.4-5.0) g/dL Globulin (2.3-3.5) g/dL Albumin/Globulin Ratio (1.2-2.2) Procalcitonin < 0.05 ng/mL Influenza Type A RNA Negative (NEGATIVE) RSV RNA (INAAT) Negative (NEGATIVE) Influenza Type B RNA Negative (NEGATIVE) SARS-CoV-2 RNA (SP) Negative (NEGATIVE) 12/25/20 12/25/20 12/25/20 Range/Units 15:00 15:00 20:50 WBC (4.5-11.0) K/uL RBC (4.30-5.90) M/uL Hgb (12.0-15.0) g/dL Hct (40.0-54.0) % MCV (80-98) fL MCH (27-31) pg MCHC (32-36) % Plt Count (150-400) K/uL Neut % (Auto) (36-66) % Lymph % (Auto) (24-44) % [place] % (Auto) (2-6) % Eos % (Auto) (2-4) % Baso % (Auto) (0-1) % Sodium (140-148) mmol/L Potassium (3.6-5.2) mmol/L Chloride (100-108) mmol/L Carbon Dioxide (21-32) mmol/L Anion Gap (5.0-14.0) mmol/L BUN (7-18) mg/dL Creatinine (0.8-1.3) mg/dL Est Cr Clr Drug Dosing mL/min Estimated GFR (MDRD) (>60) Glucose (74-106) mg/dL Lactic Acid 1.5 (0.4-2.0) mmol/L Calcium (8.5-10.1) mg/dL Magnesium (1.8-2.4) mg/dL Total Bilirubin (0.2-1.0) mg/dL AST (15-37) U/L ALT (12-78) U/L Alkaline Phosphatase (46-116) U/L Troponin I 0.079 H* 0.072 H* (0.000-0.056) ng/mL C-Reactive Protein (0.0-0.3) mg/dL NT-Pro-B Natriuret Pep (5-450) pg/mL Total Protein (6.4-8.2) g/dL Albumin (3.4-5.0) g/dL Globulin (2.3-3.5) g/dL Albumin/Globulin Ratio (1.2-2.2) Procalcitonin ng/mL Influenza Type A RNA (NEGATIVE) RSV RNA (INAAT) (NEGATIVE) Influenza Type B RNA (NEGATIVE) SARS-CoV-2 RNA (SP) (NEGATIVE) 12/26/20 12/26/20 12/26/20 Range/Units 05:52 05:52 05:52 WBC 4.6 (4.5-11.0) K/uL RBC 4.19 L (4.30-5.90) M/uL Hgb 13.7 (12.0-15.0) g/dL Hct 42.3 (40.0-54.0) % MCV 101 H (80-98) fL MCH 33 H (27-31) pg MCHC 32 (32-36) % Plt Count 140 L (150-400) K/uL Neut % (Auto) 73 H (36-66) % Lymph % (Auto) 14 L (24-44) % [place] % (Auto) 12 H (2-6) % Eos % (Auto) 2 (2-4) % Baso % (Auto) 0 (0-1) % Sodium 144 (140-148) mmol/L Potassium 2.9 L* (3.6-5.2) mmol/L Chloride 103 (100-108) mmol/L Carbon Dioxide 32 (21-32) mmol/L Anion Gap 11.9 (5.0-14.0) mmol/L BUN 22 H (7-18) mg/dL Creatinine 1.5 H (0.8-1.3) mg/dL Est Cr Clr Drug Dosing 37.65 mL/min Estimated GFR (MDRD) 44 L (>60) Glucose 118 H (74-106) mg/dL Lactic Acid (0.4-2.0) mmol/L Calcium 8.1 L (8.5-10.1) mg/dL Magnesium 1.4 L (1.8-2.4) mg/dL Total Bilirubin 1.1 H (0.2-1.0) mg/dL AST 44 H (15-37) U/L ALT 39 (12-78) U/L Alkaline Phosphatase 90 (46-116) U/L Troponin I (0.000-0.056) ng/mL C-Reactive Protein (0.0-0.3) mg/dL NT-Pro-B Natriuret Pep (5-450) pg/mL Total Protein 5.5 L (6.4-8.2) g/dL Albumin 2.6 L (3.4-5.0) g/dL Globulin 2.9 (2.3-3.5) g/dL Albumin/Globulin Ratio 0.9 L (1.2-2.2) Procalcitonin < 0.05 ng/mL Influenza Type A RNA (NEGATIVE) RSV RNA (INAAT) (NEGATIVE) Influenza Type B RNA (NEGATIVE) SARS-CoV-2 RNA (SP) (NEGATIVE) Med Orders - Current: Current Medications Acetaminophen (Acetaminophen 325 Mg Tab) 650 mg PO Q4H PRN PRN Reason: Pain (Mild 1-3)/fever Albuterol (Albuterol 0.083% 2.5 Mg/3 Ml Neb Soln) 2.5 mg NEB Q4H PRN PRN Reason: Shortness Of Breath/wheezing Aspirin (Aspirin 81 Mg Tab.Ec) 81 mg PO DAILY [facility] Last Admin: 12/26/20 08:04 Dose: 81 mg Documented by: Atorvastatin Calcium (Atorvastatin 10 Mg Tab) 10 mg PO BEDTIME [facility] Last Admin: 12/25/20 22:06 Dose: 10 mg Documented by: Magnesium Sulfate (Magnesium Sulfate In Water 2 Gm/50 Ml) 2 gm in 50 mls @ 25 mls/hr IV Q6H [facility] Stop: 12/26/20 23:59 Last Admin: 12/26/20 09:34 Dose: 25 mls/hr Documented by: Metoprolol Tartrate (Metoprolol Tartrate 25 Mg Tab) 12.5 mg PO Q6H [facility] Last Admin: 12/26/20 05:06 Dose: 12.5 mg Documented by: Ondansetron HCl (Ondansetron 4 Mg/2 Ml Sdv) 4 mg IV Q4H PRN PRN Reason: Nausea/Vomiting Pantoprazole Sodium (Pantoprazole 40 Mg Tab.Cr) 40 mg PO BIDAC [facility] Last Admin: 12/26/20 08:04 Dose: 40 mg Documented by: Polyethylene Glycol (Polyethylene Glycol 3350 Powder 17 Gm Packet) 17 gm PO DAILY PRN PRN Reason: Constipation Potassium Chloride (Potassium Chloride 20 Meq Tab.Er) 40 meq PO ONETIME ONE Stop: 12/26/20 12:01 Rivaroxaban (Rivaroxaban 15 Mg Tab) 15 mg PO DAILY@0800 [facility] Last Admin: 12/26/20 08:03 Dose: 15 mg Documented by: Sodium Chloride (Sodium Chloride 0.9% 10 Ml Syringe) 10 ml FLUSH ASDIRECTED PRN PRN Reason: Keep Vein Open Tamsulosin HCl (Tamsulosin 0.4 Mg Cap.Er) 0.4 mg PO DAILY [facility] Last Admin: 12/26/20 08:04 Dose: 0.4 mg Documented by: Trazodone HCl (Trazodone 50 Mg Tab) 50 mg PO BEDTIME PRN PRN Reason: Sleep Last Admin: 12/25/20 22:06 Dose: 50 mg Documented by: Discontinued Medications Diltiazem HCl (Diltiazem 25 Mg/5 Ml Sdv) 20 mg IVPUSH ONETIME ONE Stop: 12/25/20 09:00 Last Admin: 12/25/20 09:04 Dose: 20 mg Documented by: Furosemide (Furosemide 40 Mg/4 Ml Vial) 80 mg IVPUSH ONETIME ONE Stop: 12/25/20 09:00 Last Admin: 12/25/20 09:07 Dose: 80 mg Documented by: Furosemide (Furosemide 40 Mg/4 Ml Vial) 80 mg IVPUSH ONETIME ONE Stop: 12/25/20 17:43 Last Admin: 12/25/20 17:54 Dose: 80 mg Documented by: Furosemide (Furosemide 40 Mg/4 Ml Vial) 80 mg IVPUSH ONETIME ONE Stop: 12/26/20 09:01 Last Admin: 12/26/20 09:41 Dose: 80 mg Documented by: Diltiazem HCl 100 mg/ Sodium (Chloride) 100 mls @ 5 mls/hr IV TITRATE JACQUELINE; Pr otocol Stop: 12/25/20 17:30 Last Titration: 12/25/20 16:58 Dose: Infused Documented by: Ceftriaxone Sodium 1 gm/ (Sodium Chloride) 50 mls @ 100 mls/hr IV Q24H [facility] Last Admin: 12/25/20 11:48 Dose: 100 mls/hr Documented by: Doxycycline Hyclate 100 mg/ (Sodium Chloride) 100 mls @ 100 mls/hr IV Q12H [facility] Last Admin: 12/25/20 23:24 Dose: 100 mls/hr Documented by: Diltiazem HCl 125 mg/ Sodium (Chloride) 125 mls @ 5 mls/hr IV TITRATE JACQUELINE; Protocol Last Titration: 12/26/20 04:00 Dose: 5 mg/hr, 5 mls/hr Documented by: Sodium Chloride (Normal Saline) 1,000 mls @ 125 mls/hr IV ASDIRECTED [facility] Ceftriaxone Sodium 1 gm/ (Sodium Chloride) 50 mls @ 100 mls/hr IV Q24H [facility] Magnesium Sulfate (Magnesium Sulfate In Water 2 Gm/50 Ml) 2 gm in 50 mls @ 12.5 mls/hr IV ONETIME ONE Stop: 12/25/20 21:38 Last Admin: 12/25/20 17:54 Dose: 12.5 mls/hr Documented by: Potassium Chloride 20 meq/Lidocaine HCl 2 ml/ Sodium Chloride 112 mls @ 50 mls/hr IV ONETIME ONE Stop: 12/26/20 09:44 Last Admin: 12/26/20 07:54 Dose: 50 mls/hr Documented by: Potassium Chloride (Potassium Chloride 20 Meq Tab.Er) 40 meq PO ONETIME ONE Stop: 12/26/20 06:21 Last Admin: 12/26/20 06:27 Dose: 40 meq Documented by: Propofol (Propofol 200 Mg/20 Ml Sdv) 200 mg IVPUSH ONETIME ONE Stop: 12/25/20 09:58 Last Admin: 12/25/20 10:30 Dose: 200 mg Documented by: - Exam Quality Assessment: Supplemental Oxygen, DVT Prophylaxis General: Alert, Oriented, Cooperative, Mild Distress Lungs: Clear to Auscultation, Normal Respiratory Effort, Rales. No: Crackles, Rhonchi, Wheezing Cardiovascular: Regular Rate, Regular Rhythm, No Murmurs GI/Abdominal Exam: Soft, Non-Tender, No Organomegaly, No Distention Extremities: Non-Tender, No Pedal Edema - Patient Data Lab Results Last 24 hrs: Laboratory Results - last 24 hr 12/25/20 12/25/20 12/25/20 Range/Units 09:10 11:25 11:27 WBC (4.5-11.0) K/uL RBC (4.30-5.90) M/uL Hgb (12.0-15.0) g/dL Hct (40.0-54.0) % MCV (80-98) fL MCH (27-31) pg MCHC (32-36) % Plt Count (150-400) K/uL Neut % (Auto) (36-66) % Lymph % (Auto) (24-44) % [place] % (Auto) (2-6) % Eos % (Auto) (2-4) % Baso % (Auto) (0-1) % Sodium 144 (140-148) mmol/L Potassium 4.1 (3.6-5.2) mmol/L Chloride 99 L (100-108) mmol/L Carbon Dioxide 28 (21-32) mmol/L Anion Gap 21.1 H (5.0-14.0) mmol/L BUN 24 H (7-18) mg/dL Creatinine 1.8 H (0.8-1.3) mg/dL Est Cr Clr Drug Dosing 31.38 mL/min Estimated GFR (MDRD) 36 L (>60) Glucose 138 H (74-106) mg/dL Lactic Acid 2.1 H (0.4-2.0) mmol/L Calcium 9.1 (8.5-10.1) mg/dL Magnesium (1.8-2.4) mg/dL Total Bilirubin 1.6 H (0.2-1.0) mg/dL AST 48 H (15-37) U/L ALT 53 (12-78) U/L Alkaline Phosphatase 117 H (46-116) U/L Troponin I 0.067 H* (0.000-0.056) ng/mL C-Reactive Protein (0.0-0.3) mg/dL NT-Pro-B Natriuret Pep 72804 H (5-450) pg/mL Total Protein 6.7 (6.4-8.2) g/dL Albumin 3.1 L (3.4-5.0) g/dL Globulin 3.6 H (2.3-3.5) g/dL Albumin/Globulin Ratio 0.9 L (1.2-2.2) Procalcitonin ng/mL Influenza Type A RNA (NEGATIVE) RSV RNA (INAAT) (NEGATIVE) Influenza Type B RNA (NEGATIVE) SARS-CoV-2 RNA (SP) (NEGATIVE) 12/25/20 12/25/20 12/25/20 Range/Units 11:27 11:27 14:10 WBC (4.5-11.0) K/uL RBC (4.30-5.90) M/uL Hgb (12.0-15.0) g/dL Hct (40.0-54.0) % MCV (80-98) fL MCH (27-31) pg MCHC (32-36) % Plt Count (150-400) K/uL Neut % (Auto) (36-66) % Lymph % (Auto) (24-44) % [place] % (Auto) (2-6) % Eos % (Auto) (2-4) % Baso % (Auto) (0-1) % Sodium (140-148) mmol/L Potassium (3.6-5.2) mmol/L Chloride (100-108) mmol/L Carbon Dioxide (21-32) mmol/L Anion Gap (5.0-14.0) mmol/L BUN (7-18) mg/dL Creatinine (0.8-1.3) mg/dL Est Cr Clr Drug Dosing mL/min Estimated GFR (MDRD) (>60) Glucose (74-106) mg/dL Lactic Acid (0.4-2.0) mmol/L Calcium (8.5-10.1) mg/dL Magnesium (1.8-2.4) mg/dL Total Bilirubin (0.2-1.0) mg/dL AST (15-37) U/L ALT (12-78) U/L Alkaline Phosphatase (46-116) U/L Troponin I (0.000-0.056) ng/mL C-Reactive Protein 2.98 H (0.0-0.3) mg/dL NT-Pro-B Natriuret Pep (5-450) pg/mL Total Protein (6.4-8.2) g/dL Albumin (3.4-5.0) g/dL Globulin (2.3-3.5) g/dL Albumin/Globulin Ratio (1.2-2.2) Procalcitonin < 0.05 ng/mL Influenza Type A RNA Negative (NEGATIVE) RSV RNA (INAAT) Negative (NEGATIVE) Influenza Type B RNA Negative (NEGATIVE) SARS-CoV-2 RNA (SP) Negative (NEGATIVE) 12/25/20 12/25/20 12/25/20 Range/Units 15:00 15:00 20:50 WBC (4.5-11.0) K/uL RBC (4.30-5.90) M/uL Hgb (12.0-15.0) g/dL Hct (40.0-54.0) % MCV (80-98) fL MCH (27-31) pg MCHC (32-36) % Plt Count (150-400) K/uL Neut % (Auto) (36-66) % Lymph % (Auto) (24-44) % [place] % (Auto) (2-6) % Eos % (Auto) (2-4) % Baso % (Auto) (0-1) % Sodium (140-148) mmol/L Potassium (3.6-5.2) mmol/L Chloride (100-108) mmol/L Carbon Dioxide (21-32) mmol/L Anion Gap (5.0-14.0) mmol/L BUN (7-18) mg/dL Creatinine (0.8-1.3) mg/dL Est Cr Clr Drug Dosing mL/min Estimated GFR (MDRD) (>60) Glucose (74-106) mg/dL Lactic Acid 1.5 (0.4-2.0) mmol/L Calcium (8.5-10.1) mg/dL Magnesium (1.8-2.4) mg/dL Total Bilirubin (0.2-1.0) mg/dL AST (15-37) U/L ALT (12-78) U/L Alkaline Phosphatase (46-116) U/L Troponin I 0.079 H* 0.072 H* (0.000-0.056) ng/mL C-Reactive Protein (0.0-0.3) mg/dL NT-Pro-B Natriuret Pep (5-450) pg/mL Total Protein (6.4-8.2) g/dL Albumin (3.4-5.0) g/dL Globulin (2.3-3.5) g/dL Albumin/Globulin Ratio (1.2-2.2) Procalcitonin ng/mL Influenza Type A RNA (NEGATIVE) RSV RNA (INAAT) (NEGATIVE) Influenza Type B RNA (NEGATIVE) SARS-CoV-2 RNA (SP) (NEGATIVE) 12/26/20 12/26/20 12/26/20 Range/Units 05:52 05:52 05:52 WBC 4.6 (4.5-11.0) K/uL RBC 4.19 L (4.30-5.90) M/uL Hgb 13.7 (12.0-15.0) g/dL Hct 42.3 (40.0-54.0) % MCV 101 H (80-98) fL MCH 33 H (27-31) pg MCHC 32 (32-36) % Plt Count 140 L (150-400) K/uL Neut % (Auto) 73 H (36-66) % Lymph % (Auto) 14 L (24-44) % [place] % (Auto) 12 H (2-6) % Eos % (Auto) 2 (2-4) % Baso % (Auto) 0 (0-1) % Sodium 144 (140-148) mmol/L Potassium 2.9 L* (3.6-5.2) mmol/L Chloride 103 (100-108) mmol/L Carbon Dioxide 32 (21-32) mmol/L Anion Gap 11.9 (5.0-14.0) mmol/L BUN 22 H (7-18) mg/dL Creatinine 1.5 H (0.8-1.3) mg/dL Est Cr Clr Drug Dosing 37.65 mL/min Estimated GFR (MDRD) 44 L (>60) Glucose 118 H (74-106) mg/dL Lactic Acid (0.4-2.0) mmol/L Calcium 8.1 L (8.5-10.1) mg/dL Magnesium 1.4 L (1.8-2.4) mg/dL Total Bilirubin 1.1 H (0.2-1.0) mg/dL AST 44 H (15-37) U/L ALT 39 (12-78) U/L Alkaline Phosphatase 90 (46-116) U/L Troponin I (0.000-0.056) ng/mL C-Reactive Protein (0.0-0.3) mg/dL NT-Pro-B Natriuret Pep (5-450) pg/mL Total Protein 5.5 L (6.4-8.2) g/dL Albumin 2.6 L (3.4-5.0) g/dL Globulin 2.9 (2.3-3.5) g/dL Albumin/Globulin Ratio 0.9 L (1.2-2.2) Procalcitonin < 0.05 ng/mL Influenza Type A RNA (NEGATIVE) RSV RNA (INAAT) (NEGATIVE) Influenza Type B RNA (NEGATIVE) SARS-CoV-2 RNA (SP) (NEGATIVE) Result Diagrams: 12/26/20 05:52 12/26/20 05:52 Sepsis Event Note - Evaluation Sepsis Screening Result: No Definite Risk - Focused Exam Vital Signs: Vital Signs Temp Pulse Pulse Resp BP BP Pulse Ox 12/26/20 09:00 75 27 H 126/72 12/26/20 08:00 98.1 F 75 30 H 135/78 94 L 12/26/20 07:41 93 L 12/26/20 07:00 81 28 H 143/77 H 92 L 12/26/20 06:00 66 16 120/60 94 L 12/26/20 05:06 83 121/64 12/26/20 05:00 83 23 H 121/64 91 L 12/26/20 04:00 67 16 106/72 93 L 12/26/20 03:00 98.1 F 72 20 144/69 H 94 L 12/26/20 02:00 87 26 H 137/84 93 L 12/26/20 01:00 76 21 H 121/68 93 L 12/26/20 00:00 97.3 F 71 23 H 123/60 93 L 12/25/20 23:00 99.2 F 86 24 H 130/66 93 L 12/25/20 22:06 101 H 144/76 H 12/25/20 22:00 94 27 H 141/75 H 91 L - Problem List Review Problem List Initiated/Reviewed/Updated: Yes - My Orders Last 24 Hours: My Active Orders 12/25/20 11:26 Blood Culture x2 Reflex Set [OM.PC] Urgent 12/25/20 12:00 CULTURE BLOOD [BC] Stat CULTURE BLOOD [BC] Stat 12/25/20 12:46 Acetaminophen [TylenoL] 650 mg PO Q4H PRN Albuterol [Proventil Neb Soln] 2.5 mg NEB Q4H PRN Ondansetron [Zofran] 4 mg IV Q4H PRN Sodium Chloride 0.9% [Saline Flush] 10 ml FLUSH ASDIRECTED PRN polyethylene glycoL 3350 [MiraLAX] 17 gm PO DAILY PRN 12/25/20 12:46 Patient Status [ADT] Routine Ambulate [RC] QID Cardiac Monitoring [RC] Q6H Height and Weight [RC] DAILY Intake and Output [RC] QSHIFT Notify Provider Vital Signs [RC] ASDIRECTED Oxygen Therapy [RC] PRN Peripheral IV Care [RC] Q12H Pulse Oximetry [RC] CONTINUOUS RT Aerosol Therapy [RC] ASDIRECTED Up With Assistance [RC] ASDIRECTED Up to Chair [RC] QID VTE/DVT Education [RC] Per Unit Routine Vital Signs [RC] Q1H CULTURE RESPIRATORY + SMEAR [RM] Stat Peripheral IV Insertion Adult [OM.PC] Routine VTE Pharmacological Contraindications [AST] Per Unit Routine 12/25/20 13:30 Aspirin [Halfprin] 81 mg PO DAILY 12/25/20 15:31 Echo Comp wo Cont [US] Stat 12/25/20 16:30 Pantoprazole [ProTONIX] 40 mg PO BIDAC 12/25/20 16:57 Convert IV to Saline Lock [OM.PC] Routine 12/25/20 17:00 Metoprolol Tartrate [Lopressor] 12.5 mg PO Q6H 12/25/20 18:02 Resuscitation Status Routine 12/25/20 21:00 atorvaSTATin [Lipitor] 10 mg PO BEDTIME 12/25/20 21:53 traZODone 50 mg PO BEDTIME PRN 12/26/20 08:00 Rivaroxaban [Xarelto] 15 mg PO DAILY@0800 12/26/20 09:00 Tamsulosin [Flomax] 0.4 mg PO DAILY 12/26/20 09:45 RT Spirometry with DLCO [RESPCARE] Urgent 12/26/20 09:47 Ang Chest [CT] Urgent 12/26/20 10:00 Magnesium Sulfate/Water [Magnesium Sulfate in Water 2 GM/50 ML] 2 gm in 50 ml IV Q6H 12/26/20 12:00 Potassium Chloride [Klor-Con M20] 40 meq PO ONETIME ONE 12/27/20 05:00 BASIC METABOLIC PANEL,BMP [CHEM] Timed MAGNESIUM [CHEM] Timed 12/27/20 08:00 Myocardial Perf Spect Multi [NM] Urgent - Plan Plan:: ASSESSMENT AND PLAN ATRIAL FIBRILLATION WITH RAPID VENTRICULAR RESPONSE-converted to sinus rhythm last night and has remained in sinus rhythm except for occasional short bursts of A. fib. -metoprolol 25 mg p.o. every 6 hours -Monitor in ICU -Consider amiodarone infusion COMBINED DIASTOLIC AND SYSTOLIC CONGESTIVE HEART FAILURE-recent history of progressive dyspnea and hypoxia. Documented heart failure on recent echocardiogram as noted above. -Resume YEIMY inhibitor therapy if blood pressure remains stable -IV furosemide for diuresis -Metoprolol as above -Myoview study in a.m. 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-likely secondary to congestive heart failure and atrial fibrillation with rapid ventricular response -Supplemental oxygen as needed -Management of underlying conditions as above MILD ELEVATION IN TROPONIN-troponin level stable on follow-up -No further evaluation is warranted CHRONIC KIDNEY DISEASE STAGE IIIB -Closely monitor renal function and urine output HISTORY OF PULMONARY EMBOLI -Continue outpatient oral anticoagulation MAINTENANCE ISSUES -DVT prophylaxis; current therapy with Xarelto should provide adequate DVT prophylaxis -GI prophylaxis; not indicated -Elmore catheter; not indicated -Nutrition; 2 g sodium diet -Nicotine dependence; not required CODE STATUS-DNR/DNI ADMISSION STATUS-patient will be admitted to inpatient status, expect at least a 2 night hospital stay for evaluation and management of problems as outlined ab ove. At the time of this admission I do not reasonably expected evaluation and management of this problem will require more than a 96 hour hospital stay. DISPOSITION-anticipate discharge to home after the hospital stay. PRIMARY CARE PROVIDER-Dr. Latham
[2020-12-26] MEDS ORDERED: Sodium Chloride 0.9% 10 ML Syringe FLUSH ONE (10:11)
[2020-12-26] MEDS ORDERED: Iopamidol 755 Mg/ML 100 ML Bottle IV SCH (10:15)
[2020-12-26] MEDS ORDERED: Albuterol 0.083% 2.5 MG/3 ML Neb Soln NEB ONE (10:15)
[2020-12-26] MEDS ORDERED: Sodium Chloride 0.9% 90 ML IV SCH (10:15)
--- NOTE | 2020-12-26 10:50 | CT ---
Ang Chest CLINICAL HISTORY: History of PE TECHNIQUE: Thin section axial contiguous tomographic sections were taken through the chest after bolus IV iodinated contrast administration. Coronal and sagittal images were reconstructed. Auto dosage reduction and iterative reconstruction techniques employed. FINDINGS: There are diffuse groundglass opacities bilaterally predominating in the upper lung patterson, greater on the right. There are moderate bilateral pleural effusions greater on the right. There is patchy airspace disease in both lung bases, greater on the right. This likely represents some compressive atelectasis. There is no evidence of pulmonary. 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 Transverse dimension is 5.4 cm on current exam. This has increased since a CTA in 2016 from 4.6 cm. Descending thoracic aorta is moderately tortuous and ectatic. No mediastinal mass is identified. There are some scattered mediastinal lymph nodes. There is a slight increase in size and number when compared to 2016. This may be reactive nodes. The heart is enlarged. There is no pericardial effusion. IMPRESSION: No evidence of pulmonary embolus Diffuse bilateral groundglass opacities suggest pneumonitis Moderate bilateral pleural effusions right greater than left Patchy bibasal airspace disease is most likely some compressive atelectasis. Some consolidation is not excluded Known aortic arch aneurysm with a slight increase in size since 2016
[2020-12-26] MEDS ORDERED: cefTRIAXone 1 GM in Sodium Chloride 0.9% 50 ML IV SCH (11:30)
[2020-12-26] MEDS ORDERED: Metoprolol Tartrate 25 MG Tab PO ONE (13:30)
[2020-12-26] MEDS ORDERED: traZODone 50 MG Tab PO PRN (13:44)
[2020-12-26] MEDS: Lisinopril 10 MG Tab PO SCH (14:14)
[2020-12-26] MEDS: atorvaSTATin 10 MG Tab PO SCH (21:09)
[2020-12-26] MEDS: traZODone 50 MG Tab PO PRN (21:15)
[2020-12-27] MEDS: Metoprolol Tartrate 25 MG Tab PO SCH ×5 (00:06→17:11)
[2020-12-27] MEDS ORDERED: Furosemide 40 MG/4 ML VIAL IVPUSH ONE ×2 (10:00→18:00)
[2020-12-27] MEDS: Tamsulosin 0.4 MG Cap.ER PO SCH (10:49)
[2020-12-27] MEDS: Aspirin 81 MG Tab.EC PO SCH (10:50)
[2020-12-27] MEDS: Rivaroxaban 15 MG Tab PO SCH (10:50)
[2020-12-27] MEDS: Pantoprazole 40 MG Tab.CR PO SCH ×2 (10:50→16:38)
[2020-12-27] MEDS: Lisinopril 10 MG Tab PO SCH (10:50)
--- NOTE | 2020-12-27 13:54 | STRESS ---
DATE OF SERVICE: 12/27/2020 PROCEDURE PERFORMED: Lexiscan Myoview study. TECHNIQUE: Mr. Nolan was infused with the usual dose of Lexiscan followed by the Myoview infusion given per protocol. He did experience a sensation of some throat tightness and flushed feeling with use of Lexiscan, but did not require use of reversal medication. Resting ECG; sinus rhythm, rate of 75, normal axis and intervals. There is delayed R-wave progression noted in the precordial leads, question of possible old anteroseptal myocardial infarction. Similar findings were seen on the posthyperventilation and standing ECGs. He was noted to have frequent premature atrial and premature ventricular complexes during the monitoring period. There were no significant ST-segment changes or T-wave abnormalities seen with Lexiscan or during the post-infusion period. He did experience symptoms as reported above. IMPRESSION: Unremarkable Lexiscan portion of the Lexiscan Myoview study. Interpretation of the Myoview portion of the study is pending at this time. Demetri Wasserman MD /[id number]
--- NOTE | 2020-12-27 15:27 | PCM.PN ---
- General Info Date of Service: 12/27/20 Subjective Update: Mr. Nolan has been stable over the last 24 hours and reports improvement in shortness of breath with activity and at rest. He has remained in sinus rhythm for the most part except for short episodes of atrial fibrillation. Lexiscan Myoview study was obtained today, formal report is pending. Functional Status: Reports: Tolerating Diet, Urinating - Review of Systems General: Reports: Weakness, Fatigue. Denies: Fever, Chills Pulmonary: Reports: Shortness of Breath. Denies: Pleuritic Chest Pain, Cough, Sputum, Hemoptysis, Wheezing Cardiovascular: Reports: Dyspnea on Exertion. Denies: Chest Pain, Palpitations, Orthopnea, PND, Edema, Lightheadedness Gastrointestinal: Reports: No Symptoms Genitourinary: Reports: No Symptoms - Patient Data Vitals - Most Recent: Last Vital Signs Temp 97.2 F 12/27/20 10:16 Pulse 94 12/27/20 14:00 Resp 21 H 12/27/20 14:00 BP 132/80 12/27/20 14:00 Pulse Ox 96 12/27/20 14:00 Weight - Most Recent: 216 lb 4.375 oz I&O - Last 24 Hours: Intake & Output 12/27/20 12/27/20 12/27/20 06:59 14:59 22:59 Intake Total 300 Output Total 200 200 Balance 100 -200 Lab Results Last 24 Hours: Laboratory Results - last 24 hr 12/27/20 Range/Units 05:05 Sodium 144 (140-148) mmol/L Potassium 3.9 (3.6-5.2) mmol/L Chloride 105 (100-108) mmol/L Carbon Dioxide 30 (21-32) mmol/L Anion Gap 8.6 (5.0-14.0) mmol/L BUN 23 H (7-18) mg/dL Creatinine 1.5 H (0.8-1.3) mg/dL Est Cr Clr Drug Dosing 37.50 mL/min Estimated GFR (MDRD) 44 L (>60) Glucose 116 H (74-106) mg/dL Calcium 8.1 L (8.5-10.1) mg/dL Magnesium 2.2 (1.8-2.4) mg/dL Faustino Results Last 24 Hours: Microbiology 12/25/20 12:00 Aerobic Blood Culture - Preliminary Blood - Arm, Right NO GROWTH AFTER 2 DAYS Anaerobic Blood Culture - Preliminary NO GROWTH AFTER 2 DAYS 12/25/20 12:00 Aerobic Blood Culture - Preliminary Blood - Arm, Left NO GROWTH AFTER 2 DAYS Anaerobic Blood Culture - Preliminary NO GROWTH AFTER 2 DAYS Med Orders - Current: Current Medications Acetaminophen (Acetaminophen 325 Mg Tab) 650 mg PO Q4H PRN PRN Reason: Pain (Mild 1-3)/fever Albuterol (Albuterol 0.083% 2.5 Mg/3 Ml Neb Soln) 2.5 mg NEB Q4H PRN PRN Reason: Shortness Of Breath/wheezing Aspirin (Aspirin 81 Mg Tab.Ec) 81 mg PO DAILY [facility] Last Admin: 12/27/20 10:50 Dose: 81 mg Documented by: Atorvastatin Calcium (Atorvastatin 10 Mg Tab) 10 mg PO BEDTIME [facility] Last Admin: 12/26/20 21:09 Dose: 10 mg Documented by: Furosemide (Furosemide 40 Mg/4 Ml Vial) 80 mg IVPUSH ONETIME ONE Stop: 12/27/20 18:01 Lisinopril (Lisinopril 10 Mg Tab) 10 mg PO DAILY [facility] Last Admin: 12/27/20 10:50 Dose: 10 mg Documented by: Metoprolol Tartrate (Metoprolol Tartrate 25 Mg Tab) 25 mg PO Q6H [facility] Last Admin: 12/27/20 13:42 Dose: Not Given Documented by: Ondansetron HCl (Ondansetron 4 Mg/2 Ml Sdv) 4 mg IV Q4H PRN PRN Reason: Nausea/Vomiting Pantoprazole Sodium (Pantoprazole 40 Mg Tab.Cr) 40 mg PO BIDAC [facility] Last Admin: 12/27/20 10:50 Dose: 40 mg Documented by: Polyethylene Glycol (Polyethylene Glycol 3350 Powder 17 Gm Packet) 17 gm PO DAILY PRN PRN Reason: Constipation Potassium Chloride (Potassium Chloride 20 Meq Tab.Er) 40 meq PO ONETIME ONE Stop: 12/27/20 17:01 Rivaroxaban (Rivaroxaban 15 Mg Tab) 15 mg PO DAILY@0800 [facility] Last Admin: 12/27/20 10:50 Dose: 15 mg Documented by: Sodium Chloride (Sodium Chloride 0.9% 10 Ml Syringe) 10 ml FLUSH ASDIRECTED PRN PRN Reason: Keep Vein Open Last Admin: 12/26/20 10:52 Dose: 10 ml Documented by: Tamsulosin HCl (Tamsulosin 0.4 Mg Cap.Er) 0.4 mg PO DAILY [facility] Last Admin: 12/27/20 10:49 Dose: 0.4 mg Documented by: Trazodone HCl (Trazodone 50 Mg Tab) 50 mg PO BEDTIME PRN PRN Reason: Sleep Last Admin: 12/26/20 21:15 Dose: 50 mg Documented by: Trazodone HCl (Trazodone 50 Mg Tab) 50 mg PO BEDTIME PRN PRN Reason: Sleep Discontinued Medications Albuterol (Albuterol 0.083% 2.5 Mg/3 Ml Neb Soln) 2.5 mg NEB ONETIME ONE Stop: 12/26/20 10:16 Last Admin: 12/26/20 10:45 Dose: 2.5 mg Documented by: Diltiazem HCl (Diltiazem 25 Mg/5 Ml Sdv) 20 mg IVPUSH ONETIME ONE Stop: 12/25/20 09:00 Last Admin: 12/25/20 09:04 Dose: 20 mg Documented by: Furosemide (Furosemide 40 Mg/4 Ml Vial) 80 mg IVPUSH ONETIME ONE Stop: 12/25/20 09:00 Last Admin: 12/25/20 09:07 Dose: 80 mg Documented by: Furosemide (Furosemide 40 Mg/4 Ml Vial) 80 mg IVPUSH ONETIME ONE Stop: 12/25/20 17:43 Last Admin: 12/25/20 17:54 Dose: 80 mg Documented by: Furosemide (Furosemide 40 Mg/4 Ml Vial) 80 mg IVPUSH ONETIME ONE Stop: 12/26/20 09:01 Last Admin: 12/26/20 09:41 Dose: 80 mg Documented by: Furosemide (Furosemide 40 Mg/4 Ml Vial) 80 mg IVPUSH ONETIME ONE Stop: 12/26/20 18:01 Last Admin: 12/26/20 17:40 Dose: 80 mg Documented by: Furosemide (Furosemide 40 Mg/4 Ml Vial) 80 mg IVPUSH ONETIME ONE Stop: 12/27/20 10:01 Last Admin: 12/27/20 10:48 Dose: 80 mg Documented by: Diltiazem HCl 100 mg/ Sodium (Chloride) 100 mls @ 5 mls/hr IV TITRATE [facility]; Protocol Stop: 12/25/20 17:30 Last Titration: 12/25/20 16:58 Dose: Infused Documented by: Ceftriaxone Sodium 1 gm/ (Sodium Chloride) 50 mls @ 100 mls/hr IV Q24H [facility] Last Admin: 12/25/20 11:48 Dose: 100 mls/hr Documented by: Doxycycline Hyclate 100 mg/ (Sodium Chloride) 100 mls @ 100 mls/hr IV Q12H [facility] Last Admin: 12/25/20 23:24 Dose: 100 mls/hr Documented by: Diltiazem HCl 125 mg/ Sodium (Chloride) 125 mls @ 5 mls/hr IV TITRATE [facility]; Protocol Last Titration: 12/26/20 04:00 Dose: 5 mg/hr, 5 mls/hr Documented by: Sodium Chloride (Normal Saline) 1,000 mls @ 125 mls/hr IV ASDIRECTED [facility] Ceftriaxone Sodium 1 gm/ (Sodium Chloride) 50 mls @ 100 mls/hr IV Q24H [facility] Magnesium Sulfate (Magnesium Sulfate In Water 2 Gm/50 Ml) 2 gm in 50 mls @ 12.5 mls/hr IV ONETIME ONE Stop: 12/25/20 21:38 Last Admin: 12/25/20 17:54 Dose: 12.5 mls/hr Documented by: Potassium Chloride 20 meq/Lidocaine HCl 2 ml/ Sodium Chloride 112 mls @ 50 mls/hr IV ONETIME ONE Stop: 12/26/20 09:44 Last Admin: 12/26/20 07:54 Dose: 50 mls/hr Documented by: Magnesium Sulfate (Magnesium Sulfate In Water 2 Gm/50 Ml) 2 gm in 50 mls @ 25 mls/hr IV Q6H [facility] Stop: 12/26/20 23:59 Last Admin: 12/26/20 21:09 Dose: 25 mls/hr Documented by: Sodium Chloride (Normal Saline) 90 mls @ 3.5 mls/sec IV ASDIRECTED [facility] Stop: 12/26/20 14:00 Last Admin: 12/26/20 10:52 Dose: 3.5 mls/sec Documented by: Iopamidol (Iopamidol 755 Mg/Ml 100 Ml Bottle) 90 ml IV . DIRECTED [facility] Stop: 12/26/20 12:00 Last Admin: 12/26/20 10:52 Dose: 90 ml Documented by: Metoprolol Tartrate (Metoprolol Tartrate 25 Mg Tab) 12.5 mg PO Q6H [facility] Last Admin: 12/26/20 12:35 Dose: 12.5 mg Documented by: Metoprolol Tartrate (Metoprolol Tartrate 25 Mg Tab) 12.5 mg PO ONETIME ONE Stop: 12/26/20 13:31 Last Admin: 12/26/20 13:34 Dose: 12.5 mg Documented by: Potassium Chloride (Potassium Chloride 20 Meq Tab.Er) 40 meq PO ONETIME ONE Stop: 12/26/20 06:21 Last Admin: 12/26/20 06:27 Dose: 40 meq Documented by: Potassium Chloride (Potassium Chloride 20 Meq Tab.Er) 40 meq PO ONETIME ONE Stop: 12/26/20 12:01 Last Admin: 12/26/20 12:35 Dose: 40 meq Documented by: Potassium Chloride (Potassium Chloride 20 Meq Tab.Er) 40 meq PO ONETIME ONE Stop: 12/26/20 17:01 Last Admin: 12/26/20 17:39 Dose: 40 meq Documented by: Propofol (Propofol 200 Mg/20 Ml Sdv) 200 mg IVPUSH ONETIME ONE Stop: 12/25/20 09:58 Last Admin: 12/25/20 10:30 Dose: 200 mg Documented by: Regadenoson (Regadenoson 0.4 Mg/5 Ml Syringe) 0.4 mg IVPUSH ONETIME ONE Stop: 12/27/20 10:31 Last Admin: 12/27/20 10:24 Dose: 0.4 mg Documented by: Sodium Chloride (Sodium Chloride 0.9% 10 Ml Syringe) 10 ml FLUSH ONETIME ONE Stop: 12/26/20 10:12 Last Admin: 12/26/20 12:36 Dose: 10 ml Documented by: - Exam General: Alert, Oriented, Cooperative, Mild Distress Lungs: Normal Respiratory Effort, Decreased Breath Sounds, Rales. No: Rhonchi, Wheezing Cardiovascular: Regular Rate, No Murmurs, Irregular Rhythm GI/Abdominal Exam: Soft, Non-Tender, No Organomegaly, No Distention Extremities: Non-Tender, No Pedal Edema - Patient Data Lab Results Last 24 hrs: Laboratory Results - last 24 hr 12/27/20 Range/Units 05:05 Sodium 144 (140-148) mmol/L Potassium 3.9 (3.6-5.2) mmol/L Chloride 105 (100-108) mmol/L Carbon Dioxide 30 (21-32) mmol/L Anion Gap 8.6 (5.0-14.0) mmol/L BUN 23 H (7-18) mg/dL Creatinine 1.5 H (0.8-1.3) mg/dL Est Cr Clr Drug Dosing 37.50 mL/min Estimated GFR (MDRD) 44 L (>60) Glucose 116 H (74-106) mg/dL Calcium 8.1 L (8.5-10.1) mg/dL Magnesium 2.2 (1.8-2.4) mg/dL Result Diagrams: 12/26/20 05:52 12/27/20 05:05 Faustino Results Last 24 hrs: Microbiology 12/25/20 12:00 Aerobic Blood Culture - Preliminary Blood - Arm, Right NO GROWTH AFTER 2 DAYS Anaerobic Blood Culture - Preliminary NO GROWTH AFTER 2 DAYS 12/25/20 12:00 Aerobic Blood Culture - Preliminary Blood - Arm, Left NO GROWTH AFTER 2 DAYS Anaerobic Blood Culture - Preliminary NO GROWTH AFTER 2 DAYS Sepsis Event Note - Evaluation Sepsis Screening Result: No Definite Risk - Focused Exam Vital Signs: Vital Signs Temp Pulse Pulse Resp BP BP Pulse Ox 12/27/20 14:00 94 21 H 132/80 96 12/27/20 13:42 69 117/60 12/27/20 12:51 96 12/27/20 12:00 66 26 H 117/60 95 12/27/20 10:50 146/91 H 12/27/20 10:49 71 146/91 H 12/27/20 10:16 97.2 F 79 20 130/76 96 12/27/20 08:00 97.7 F 78 14 146/91 H 94 L 12/27/20 07:00 93 L 12/27/20 06:00 78 19 139/82 94 L 12/27/20 04:00 83 19 132/78 94 L - Problem List Review Problem List Initiated/Reviewed/Updated: Yes - My Orders Last 24 Hours: My Active Orders 12/26/20 Dinner NPO After Midnight [Nothing per Oral After Midnight Diet] [DIET] 12/26/20 18:00 Metoprolol Tartrate [Lopressor] 25 mg PO Q6H 12/27/20 08:00 Myocardial Perf Spect Multi [NM] Urgent 12/27/20 15:13 Consult to Physical Therapy [PT Evaluation and Treatment] [CONS] Routine 12/27/20 17:00 Potassium Chloride [Klor-Con M20] 40 meq PO ONETIME ONE 12/27/20 18:00 Furosemide [Lasix] 80 mg IVPUSH ONETIME ONE 12/28/20 05:00 BASIC METABOLIC PANEL,BMP [CHEM] Timed - Plan Plan:: ASSESSMENT AND PLAN ATRIAL FIBRILLATION WITH RAPID VENTRICULAR RESPONSE-he has remained in sinus rhythm with good rate control over the last 24 hours. -metoprolol 25 mg p.o. every 6 hours, plan to convert to long-acting form of metoprolol in the a.m. -Monitor in ICU -Consider amiodarone infusion COMBINED DIASTOLIC AND SYSTOLIC CONGESTIVE HEART FAILURE-recent history of progressive dyspnea and hypoxia. Documented heart failure on recent echocardiogram as noted above. 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-likely secondary to congestive heart failure and atrial fibrillation with rapid ventricular response -Supplemental oxygen as needed -Will likely require discharged home on supplemental oxygen -Management of underlying conditions as above MILD ELEVATION IN TROPONIN-troponin level stable on follow-up -No further evaluation is warranted CHRONIC KIDNEY DISEASE STAGE IIIB-renal function improved from admission and has remained stable with diuresis -Closely monitor renal function and urine output HISTORY OF PULMONARY EMBOLI -Continue outpatient oral anticoagulation MAINTENANCE ISSUES -DVT prophylaxis; current therapy with Xarelto should provide adequate DVT prophylaxis -GI prophylaxis; not indicated -Elmore catheter; not indicated -Nutrition; 2 g sodium diet -Nicotine dependence; not required CODE STATUS-DNR/DNI ADMISSION STATUS-patient will be admitted to inpatient status, expect at least a 2 night hospital stay for evaluation and management of problems as outlined above. At the time of this admission I do not reasonably expected evaluation and management of this problem will require more than a 96 hour hospital stay. DISPOSITION-anticipate discharge to home after the hospital stay. PRIMARY CARE PROVIDER-Dr. Latham
--- NOTE | 2020-12-27 16:45 | CRLNM ---
MYOCARDIAL PERFUSION SCAN, 12/27/2020 CLINICAL HISTORY: 85-year-old male. Shortness of breath on exertion. 5 feet 10 inches, 221 pounds. TECHNIQUE: (Resting SPECT and stress gated SPECT with wall motion and ejection fraction) Stress: Pharmacologic - Lexiscan (0.4 mg IV) Dose (Stress/Rest): 32.5 mCi/10.9 mCi [id number] (IV) Comparison: None FINDINGS: There is good uptake of activity by the left ventricle. There is moderate left ventricular enlargement. EDV = 244 mL. ESV = 168 mL. There is soft tissue attenuation. No other significant fixed or reversible defects are identified. The gated images demonstrate a low left ventricular ejection fraction of 31 percent. There is global hypokinesis. IMPRESSION: 1)There is no evidence of significant myocardial ischemia or infarction. 2)Low left ventricular ejection fraction of 31 percent. 3)There is moderate left ventricular enlargement. TRUPTI FLYNN M.D. [email or web address] Transcribed: 3:[address]/Dictated by: Trupti Flynn MD @ 12/27/2020 3:25:00 PM (Electronically Signed)
[2020-12-27] MEDS ORDERED: Potassium Chloride 20 MEQ Tab.ER PO ONE (17:00)
[2020-12-27] MEDS: atorvaSTATin 10 MG Tab PO SCH (21:19)
[2020-12-27] MEDS: traZODone 50 MG Tab PO PRN (21:29)
[2020-12-28] MEDS: Metoprolol Tartrate 25 MG Tab PO SCH ×4 (00:31→17:26)
[2020-12-28] MEDS: Rivaroxaban 15 MG Tab PO SCH (07:17)
[2020-12-28] MEDS: Pantoprazole 40 MG Tab.CR PO SCH ×2 (07:18→17:26)
[2020-12-28] MEDS ORDERED: Furosemide 40 MG/4 ML VIAL IVPUSH ONE ×2 (08:30→18:00)
[2020-12-28] MEDS: Tamsulosin 0.4 MG Cap.ER PO SCH (09:24)
[2020-12-28] MEDS: Lisinopril 10 MG Tab PO SCH (09:25)
[2020-12-28] MEDS: Aspirin 81 MG Tab.EC PO SCH (09:25)
--- NOTE | 2020-12-28 15:00 | PCM.PN ---
- General Info Date of Service: 12/28/20 Subjective Update: Mr. Nolan has done well since yesterday with less shortness of breath although he does continue to require supplemental oxygen. Rhythm and rate control have remained stable, no further episodes of significant atrial fibrillation. Functional Status: Reports: Tolerating Diet, Ambulating, Urinating - Review of Systems General: Reports: Weakness, Fatigue. Denies: Fever, Chills Pulmonary: Reports: Shortness of Breath. Denies: Pleuritic Chest Pain, Cough, Sputum, Hemoptysis, Wheezing Cardiovascular: Reports: Dyspnea on Exertion. Denies: Chest Pain, Palpitations, Orthopnea, PND, Edema, Lightheadedness Gastrointestinal: Reports: No Symptoms Genitourinary: Reports: No Symptoms - Patient Data Vitals - Most Recent: Last Vital Signs Temp 98.1 F 12/28/20 08:00 Pulse 70 12/28/20 14:00 Resp 17 12/28/20 14:00 BP 128/78 12/28/20 14:00 Pulse Ox 96 12/28/20 14:00 Weight - Most Recent: 214 lb I&O - Last 24 Hours: Intake & Output 12/27/20 12/28/20 12/28/20 22:59 06:59 14:59 Intake Total 300 400 Output Total 725 975 600 Balance -425 -975 -200 Lab Results Last 24 Hours: Laboratory Results - last 24 hr 12/28/20 Range/Units 05:00 Sodium 143 (140-148) mmol/L Potassium 4.2 (3.6-5.2) mmol/L Chloride 104 (100-108) mmol/L Carbon Dioxide 32 (21-32) mmol/L Anion Gap 7.4 (5.0-14.0) mmol/L BUN 24 H (7-18) mg/dL Creatinine 1.5 H (0.8-1.3) mg/dL Est Cr Clr Drug Dosing 37.50 mL/min Estimated GFR (MDRD) 44 L (>60) Glucose 108 H (74-106) mg/dL Calcium 8.2 L (8.5-10.1) mg/dL Faustino Results Last 24 Hours: Microbiology 12/25/20 12:00 Aerobic Blood Culture - Preliminary Blood - Arm, Right NO GROWTH AFTER 3 DAYS Anaerobic Blood Culture - Preliminary NO GROWTH AFTER 3 DAYS 12/25/20 12:00 Aerobic Blood Culture - Preliminary Blood - Arm, Left NO GROWTH AFTER 3 DAYS Anaerobic Blood Culture - Preliminary NO GROWTH AFTER 3 DAYS Med Orders - Current: Current Medications Acetaminophen (Acetaminophen 325 Mg Tab) 650 mg PO Q4H PRN PRN Reason: Pain (Mild 1-3)/fever Albuterol (Albuterol 0.083% 2.5 Mg/3 Ml Neb Soln) 2.5 mg NEB Q4H PRN PRN Reason: Shortness Of Breath/wheezing Aspirin (Aspirin 81 Mg Tab.Ec) 81 mg PO DAILY [facility] Last Admin: 12/28/20 09:25 Dose: 81 mg Documented by: Atorvastatin Calcium (Atorvastatin 10 Mg Tab) 10 mg PO BEDTIME [facility] Last Admin: 12/27/20 21:19 Dose: 10 mg Documented by: Furosemide (Furosemide 40 Mg/4 Ml Vial) 80 mg IVPUSH ONETIME ONE Stop: 12/28/20 18:01 Lisinopril (Lisinopril 10 Mg Tab) 10 mg PO DAILY [facility] Last Admin: 12/28/20 09:25 Dose: 10 mg Documented by: Metoprolol Tartrate (Metoprolol Tartrate 25 Mg Tab) 25 mg PO Q6H [facility] Last Admin: 12/28/20 12:03 Dose: 25 mg Documented by: Ondansetron HCl (Ondansetron 4 Mg/2 Ml Sdv) 4 mg IV Q4H PRN PRN Reason: Nausea/Vomiting Pantoprazole Sodium (Pantoprazole 40 Mg Tab.Cr) 40 mg PO BIDAC [facility] Last Admin: 12/28/20 07:18 Dose: 40 mg Documented by: Polyethylene Glycol (Polyethylene Glycol 3350 Powder 17 Gm Packet) 17 gm PO DAILY PRN PRN Reason: Constipation Rivaroxaban (Rivaroxaban 15 Mg Tab) 15 mg PO DAILY@0800 [facility] Last Admin: 12/28/20 07:17 Dose: 15 mg Documented by: Sodium Chloride (Sodium Chloride 0.9% 10 Ml Syringe) 10 ml FLUSH ASDIRECTED PRN PRN Reason: Keep Vein Open Last Admin: 12/26/20 10:52 Dose: 10 ml Documented by: Tamsulosin HCl (Tamsulosin 0.4 Mg Cap.Er) 0.4 mg PO DAILY [facility] Last Admin: 12/28/20 09:24 Dose: 0.4 mg Documented by: Trazodone HCl (Trazodone 50 Mg Tab) 50 mg PO BEDTIME PRN PRN Reason: Sleep Last Admin: 12/27/20 21:29 Dose: 50 mg Documented by: Discontinued Medications Albuterol (Albuterol 0.083% 2.5 Mg/3 Ml Neb Soln) 2.5 mg NEB ONETIME ONE Stop: 12/26/20 10:16 Last Admin: 12/26/20 10:45 Dose: 2.5 mg Documented by: Diltiazem HCl (Diltiazem 25 Mg/5 Ml Sdv) 20 mg IVPUSH ONETIME ONE Stop: 12/25/20 09:00 Last Admin: 12/25/20 09:04 Dose: 20 mg Documented by: Furosemide (Furosemide 40 Mg/4 Ml Vial) 80 mg IVPUSH ONETIME ONE Stop: 12/25/20 09:00 Last Admin: 12/25/20 09:07 Dose: 80 mg Documented by: Furosemide (Furosemide 40 Mg/4 Ml Vial) 80 mg IVPUSH ONETIME ONE Stop: 12/25/20 17:43 Last Admin: 12/25/20 17:54 Dose: 80 mg Documented by: Furosemide (Furosemide 40 Mg/4 Ml Vial) 80 mg IVPUSH ONETIME ONE Stop: 12/26/20 09:01 Last Admin: 12/26/20 09:41 Dose: 80 mg Documented by: Furosemide (Furosemide 40 Mg/4 Ml Vial) 80 mg IVPUSH ONETIME ONE Stop: 12/26/20 18:01 Last Admin: 12/26/20 17:40 Dose: 80 mg Documented by: Furosemide (Furosemide 40 Mg/4 Ml Vial) 80 mg IVPUSH ONETIME ONE Stop: 12/27/20 10:01 Last Admin: 12/27/20 10:48 Dose: 80 mg Documented by: Furosemide (Furosemide 40 Mg/4 Ml Vial) 80 mg IVPUSH ONETIME ONE Stop: 12/27/20 18:01 Last Admin: 12/27/20 17:14 Dose: 80 mg Documented by: Furosemide (Furosemide 40 Mg/4 Ml Vial) 80 mg IVPUSH ONETIME ONE Stop: 12/28/20 08:31 Last Admin: 12/28/20 08:59 Dose: 80 mg Documented by: Diltiazem HCl 100 mg/ Sodium (Chloride) 100 mls @ 5 mls/hr IV TITRATE JACQUELINE; Protocol Stop: 12/25/20 17:30 Last Titration: 12/25/20 16:58 Dose: Infused Documented by: Ceftriaxone Sodium 1 gm/ (Sodium Chloride) 50 mls @ 100 mls/hr IV Q24H JACQUELINE Last Admin: 12/25/20 11:48 Dose: 100 mls/hr Documented by: Doxycycline Hyclate 100 mg/ (Sodium Chloride) 100 mls @ 100 mls/hr IV Q12H JACQUELINE Last Admin: 12/25/20 23:24 Dose: 100 mls/hr Documented by: Diltiazem HCl 125 mg/ Sodium (Chloride) 125 mls @ 5 mls/hr IV TITRATE JACQUELINE; Pro tocol Last Titration: 12/26/20 04:00 Dose: 5 mg/hr, 5 mls/hr Documented by: Sodium Chloride (Normal Saline) 1,000 mls @ 125 mls/hr IV ASDIRECTED [facility] Ceftriaxone Sodium 1 gm/ (Sodium Chloride) 50 mls @ 100 mls/hr IV Q24H [facility] Magnesium Sulfate (Magnesium Sulfate In Water 2 Gm/50 Ml) 2 gm in 50 mls @ 12.5 mls/hr IV ONETIME ONE Stop: 12/25/20 21:38 Last Admin: 12/25/20 17:54 Dose: 12.5 mls/hr Documented by: Potassium Chloride 20 meq/Lidocaine HCl 2 ml/ Sodium Chloride 112 mls @ 50 mls/hr IV ONETIME ONE Stop: 12/26/20 09:44 Last Admin: 12/26/20 07:54 Dose: 50 mls/hr Documented by: Magnesium Sulfate (Magnesium Sulfate In Water 2 Gm/50 Ml) 2 gm in 50 mls @ 25 mls/hr IV Q6H [facility] Stop: 12/26/20 23:59 Last Admin: 12/26/20 21:09 Dose: 25 mls/hr Documented by: Sodium Chloride (Normal Saline) 90 mls @ 3.5 mls/sec IV ASDIRECTED JACQUELINE Stop: 12/26/20 14:00 Last Admin: 12/26/20 10:52 Dose: 3.5 mls/sec Documented by: Iopamidol (Iopamidol 755 Mg/Ml 100 Ml Bottle) 90 ml IV . DIRECTED JACQUELINE Stop: 12/26/20 12:00 Last Admin: 12/26/20 10:52 Dose: 90 ml Documented by: Metoprolol Tartrate (Metoprolol Tartrate 25 Mg Tab) 12.5 mg PO Q6H JACQUELINE Last Admin: 12/26/20 12:35 Dose: 12.5 mg Documented by: Metoprolol Tartrate (Metoprolol Tartrate 25 Mg Tab) 12.5 mg PO ONETIME ONE Stop: 12/26/20 13:31 Last Admin: 12/26/20 13:34 Dose: 12.5 mg Documented by: Potassium Chloride (Potassium Chloride 20 Meq Tab.Er) 40 meq PO ONETIME ONE Stop: 12/26/20 06:21 Last Admin: 12/26/20 06:27 Dose: 40 meq Documented by: Potassium Chloride (Potassium Chloride 20 Meq Tab.Er) 40 meq PO ONETIME ONE Stop: 12/26/20 12:01 Last Admin: 12/26/20 12:35 Dose: 40 meq Documented by: Potassium Chloride (Potassium Chloride 20 Meq Tab.Er) 40 meq PO ONETIME ONE Stop: 12/26/20 17:01 Last Admin: 12/26/20 17:39 Dose: 40 meq Documented by: Potassium Chloride (Potassium Chloride 20 Meq Tab.Er) 40 meq PO ONETIME ONE Stop: 12/27/20 17:01 Last Admin: 12/27/20 17:12 Dose: 40 meq Documented by: Propofol (Propofol 200 Mg/20 Ml Sdv) 200 mg IVPUSH ONETIME ONE Stop: 12/25/20 09:58 Last Admin: 12/25/20 10:30 Dose: 200 mg Documented by: Regadenoson (Regadenoson 0.4 Mg/5 Ml Syringe) 0.4 mg IVPUSH ONETIME ONE Stop: 12/27/20 10:31 Last Admin: 12/27/20 10:24 Dose: 0.4 mg Documented by: Sodium Chloride (Sodium Chloride 0.9% 10 Ml Syringe) 10 ml FLUSH ONETIME ONE Stop: 12/26/20 10:12 Last Admin: 12/26/20 12:36 Dose: 10 ml Documented by: - Exam Quality Assessment: Supplemental Oxygen, DVT Prophylaxis General: Alert, Oriented, Cooperative, No Acute Distress Lungs: Clear to Auscultation, Normal Respiratory Effort, Decreased Breath Sounds Cardiovascular: Regular Rate, Regular Rhythm, No Murmurs GI/Abdominal Exam: Soft, Non-Tender, No Organomegaly, No Distention Extremities: Non-Tender, No Pedal Edema - Patient Data Lab Results Last 24 hrs: Laboratory Results - last 24 hr 12/28/20 Range/Units 05:00 Sodium 143 (140-148) mmol/L Potassium 4.2 (3.6-5.2) mmol/L Chloride 104 (100-108) mmol/L Carbon Dioxide 32 (21-32) mmol/L Anion Gap 7.4 (5.0-14.0) mmol/L BUN 24 H (7-18) mg/dL Creatinine 1.5 H (0.8-1.3) mg/dL Est Cr Clr Drug Dosing 37.50 mL/min Estimated GFR (MDRD) 44 L (>60) Glucose 108 H (74-106) mg/dL Calcium 8.2 L (8.5-10.1) mg/dL Result Diagrams: 12/26/20 05:52 12/28/20 05:00 Faustino Results Last 24 hrs: Microbiology 12/25/20 12:00 Aerobic Blood Culture - Preliminary Blood - Arm, Right NO GROWTH AFTER 3 DAYS Anaerobic Blood Culture - Preliminary NO GROWTH AFTER 3 DAYS 12/25/20 12:00 Aerobic Blood Culture - Preliminary Blood - Arm, Left NO GROWTH AFTER 3 DAYS Anaerobic Blood Culture - Preliminary NO GROWTH AFTER 3 DAYS Sepsis Event Note - Evaluation Sepsis Screening Result: No Definite Risk - Focused Exam Vital Signs: Vital Signs Temp Pulse Pulse Resp BP BP Pulse Ox 12/28/20 14:00 70 17 128/78 96 12/28/20 12:03 74 113/87 12/28/20 12:00 73 21 H 113/87 96 12/28/20 10:00 72 21 H 125/66 96 12/28/20 09:25 127/68 12/28/20 08:00 98.1 F 76 28 H 116/65 95 12/28/20 06:00 16 133/87 95 12/28/20 05:26 74 144/86 H 12/28/20 04:00 20 144/86 H 94 L - Problem List Review Problem List Initiated/Reviewed/Updated: Yes - My Orders Last 24 Hours: My Active Orders 12/27/20 15:13 Consult to Physical Therapy [PT Evaluation and Treatment] [CONS] Routine 12/28/20 14:55 Patient Status [ADT] Routine 12/28/20 17:00 Potassium Chloride [Klor-Con M20] 40 meq PO ONETIME ONE 12/28/20 18:00 Furosemide [Lasix] 80 mg IVPUSH ONETIME ONE 12/29/20 05:00 BASIC METABOLIC PANEL,BMP [CHEM] Timed - Plan Plan:: ASSESSMENT AND PLAN ATRIAL FIBRILLATION WITH RAPID VENTRICULAR RESPONSE-he has remained in sinus rhythm with good rate control over the last 24 hours. -metoprolol 25 mg p.o. every 6 hours, plan to convert to long-acting form of metoprolol in the a.m. -Monitor in ICU COMBINED DIASTOLIC AND SYSTOLIC CONGESTIVE HEART FAILURE-recent history of progressive dyspnea and hypoxia. Documented heart failure on recent echocardiogram as noted above. Myoview study did confirm decreased left ventricular systolic function, no evidence of ischemia or previous infarct. 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-likely secondary to congestive heart failure and atrial fibrillation with rapid ventricular response -Supplemental oxygen as needed -Will likely require discharged home on supplemental oxygen -Management of underlying conditions as above MILD ELEVATION IN TROPONIN-troponin level stable on follow-up -No further evaluation is warranted CHRONIC KIDNEY DISEASE STAGE IIIB-renal function improved from admission and has remained stable with diuresis -Closely monitor renal function and urine output HISTORY OF PULMONARY EMBOLI -Continue outpatient oral anticoagulation MAINTENANCE ISSUES -DVT prophylaxis; current therapy with Xarelto should provide adequate DVT prophylaxis -GI prophylaxis; not indicated -[place]more catheter; not indicated -Nutrition; 2 g sodium diet -Nicotine dependence; not required CODE STATUS-DNR/DNI ADMISSION STATUS-patient will be admitted to inpatient status, expect at least a 2 night hospital stay for evaluation and management of problems as outlined above. At the time of this admission I do not reasonably expected evaluation an d management of this problem will require more than a 96 hour hospital stay. DISPOSITION-anticipate discharge to home after the hospital stay. PRIMARY CARE PROVIDER-Dr. Latham
[2020-12-28] MEDS ORDERED: Potassium Chloride 20 MEQ Tab.ER PO ONE (17:00)
[2020-12-28] MEDS: atorvaSTATin 10 MG Tab PO SCH (20:09)
[2020-12-28] MEDS: traZODone 50 MG Tab PO PRN (20:50)
[2020-12-29] MEDS: Metoprolol Tartrate 25 MG Tab PO SCH ×2 (00:05→05:46)
[2020-12-29 08:25] VITALS: BP 113/58
[2020-12-29] MEDS: Rivaroxaban 15 MG Tab PO SCH (08:26)
[2020-12-29] MEDS: Pantoprazole 40 MG Tab.CR PO SCH (08:26)
[2020-12-29] MEDS: Tamsulosin 0.4 MG Cap.ER PO SCH (08:27)
[2020-12-29] MEDS: Aspirin 81 MG Tab.EC PO SCH (08:27)
[2020-12-29] MEDS: Lisinopril 10 MG Tab PO SCH (08:27)
[2020-12-29 08:28] VITALS: PULSE 67
[2020-12-29] MEDS ORDERED: Furosemide 40 MG/4 ML VIAL IVPUSH ONE (08:30)
[2020-12-29] MEDS ORDERED: Metoprolol Succinate 50 MG Tab.ER PO SCH (09:00)
--- NOTE | 2020-12-29 10:33 | PCM.DCSUM1 ---
Discharge Summary - Hospital Course Brief History: Mr. Nolan is an 85-year-old gentleman who was admitted through the emergency department with shortness of breath and hypoxia secondary to congestive heart failure and atrial fibrillation with rapid ventricular response. - Discharge Data Discharge Date: 12/29/20 Discharge Disposition: Home, Self-Care 01 Condition: Fair - Referral to Home Health Primary Care Physician: Ban Latham MD - Discharge Diagnosis/Problem(s) (1) Systolic and diastolic CHF, acute on chronic SNOMED Code(s): 945977285014767, [id number] ICD Code: I50.43 - ACUTE ON CHRONIC COMBINED SYSTOLIC AND DIASTOLIC HRT FAIL Status: Acute Current Visit: Yes (2) Atrial flutter with rapid ventricular response SNOMED Code(s): 9682614, 1959280 ICD Code: I48.92 - UNSPECIFIED ATRIAL FLUTTER Status: Acute Current Visit: Yes (3) CKD (chronic kidney disease) stage 3, GFR 30-59 ml/min SNOMED Code(s): 561301544 ICD Code: N18.30 - CHRONIC KIDNEY DISEASE, STAGE 3 UNSPECIFIED Status: Chronic Current Visit: No (4) PVD (peripheral vascular disease) SNOMED Code(s): 905599435 ICD Code: I73.9 - PERIPHERAL VASCULAR DISEASE, UNSPECIFIED Status: Chronic Current Visit: No - Patient Summary/Data Consults: Consultations 12/27/20 15:13 Consult to Physical Therapy [PT Evaluation and Treatment] [CONS] Routine Please Evaluate and Treat. PT Reason for Consult: Weakness This query below is only for informational purposes and is not editable. Admission Diagnosis/Problem: Pneumonia Hospital Course: Mr. Nolan is an 85-year-old gentleman who was admitted through the emergency department with hypoxia and atrial fibrillation with rapid ventricular response. He reported that he has had progressive difficulty with shortness of breath over the past 2 months and has been seen on a regular basis by his primary care provider Dr. Latham. Echocardiogram was obtained which did show decreased left ventricular systolic function and estimated ejection fraction of 35 to 40%, mild diastolic dysfunction, and biatrial enlargement. Peripheral edema has responded to diuretic therapy but he is experienced ongoing difficulty with shortness of breath. Lexiscan Myoview study has been scheduled for evaluation of underlying ischemic disease. Kidney function has declined somewhat over the past few months, in October creatinine was 1.31 and it has gradually increased since then, today it is 1.8 with a GFR of just above 30. He does have a smoking history but stopped over 20 years ago and denies diagnosis of COPD or asthma. He also has a past history of bilateral pulmonary emboli and has been on oral anticoagulation over the past 5 years. On an outpatient basis he has been noted to have irregular heart rhythm, but was not felt to have atrial fibrillation. Over the past 2 days he has noted progressive increase in shortness of breath to the point where he was up all night feeling short of breath at rest. On evaluation in the emergency department chest x-ray suggests possible right lung infiltrate. He was found to be in atrial fibrillation with rapid ventricular response. Attempted cardioversion was unsuccessful. He was given a bolus dose of IV diltiazem in the emergency department and started on a continuous infusion of IV diltiazem. This did result in improved for rate control. He was also given IV furosemide which did result in good diuresis. There was question of possible pneumonia on admission, blood cultures were obtained, and he was started on IV antibiotic therapy. Procalcitonin level was obtained and found to be within normal range. The following morning procalcitonin level was repeated and again found to be normal. There was no other evidence of active infection and antibiotic therapy was discontinued. He was given IV furosemide twice daily throughout his hospital stay which did result in good diuresis and improvement in his shortness of breath. IV diltiazem was discontinued and he was transitioned to oral metoprolol, he did convert to sinus rhythm and remained in sinus rhythm through the rest of his hospital stay. At the time of discharge his amlodipine was discontinued and he will be discharged on metoprolol XL [address] scan of the chest was obtained and showed no evidence of pulmonary emboli but did document bilateral pleural effusions as well as groundglass infiltrates consistent with pulmonary edema. Pulmonary function testing was obtained and did show decrease in DLCO as well as lung volumes, in retrospect this was likely secondary to his pulmonary edema. Consider repeating pulmonary function studies on an outpatient basis when his congestive heart failure is well managed and stable. Lexiscan Myoview study was obtained during hospitalization and did show evidence of decreased left ventricular systolic function with estimated ejection fraction of 31%, there was no evidence of previous myocardial infarction or active ischemia. Troponin level was mildly elevated on admission, serial levels were obtained and remained within similar range. Troponin elevation was felt to be secondary to his underlying chronic kidney disease and demand ischemia in the setting of hypoxia and atrial fibrillation with rapid ventricular response. He continued to require supplemental oxygen throughout his hospital stay and prior to discharge was qualified for continuous home oxygen. On the day of discharge he had an oxygen saturation of 87% on room air and at rest. He will be discharged home on an increased dose of furosemide at 80 mg daily. Activity will be as tolerated and he is encouraged to follow a strict 2 g sodium diet. Follow-up appointment will be scheduled with his primary care provider within 1 week. Home care services will be arranged including home physical therapy and Occupational Therapy. - Patient Instructions Diet: Low Sodium Activity: As Tolerated Other/Special Instructions: Please schedule follow-up appointment with primary care provider within 1 week. Please arrange for home oxygen 3 L/min via nasal cannula. Please arrange for home health care with home physical therapy and Occupational Therapy. - Discharge Plan *PRESCRIPTION DRUG MONITORING PROGRAM REVIEWED*: Not Applicable *COPY OF PRESCRIPTION DRUG MONITORING REPORT IN PATIENT KATIE: Not Applicable Prescriptions/Med Rec: Furosemide 80 mg PO DAILY #30 tablet Metoprolol Succinate 100 mg PO DAILY #30 tab.er.24h Home Medications: Home Meds Ascorbic Acid [Vitamin C] 500 mg PO DAILY 03/10/16 [History] Aspirin [Adult Low Dose Aspirin EC] 81 mg PO DAILY 03/10/16 [History] Calcium Carbonate [Calcium] 600 mg PO DAILY 03/10/16 [History] Glucosamine/Chondroitin/Vit D3 [Cwoyzxmi-Whmput-Rfd D3 Tab] 1 each PO DAILY 03/10/16 [History] Krill/[place]-3/Dha/Epa/Lipids [Krill Oil 300 mg Softgel] 1 each PO DAILY 03/10/16 [History] Multivitamin [Multi-Vitamin Daily] 1 each PO DAILY 03/10/16 [History] atorvaSTATin [Lipitor] 10 mg PO BEDTIME 03/10/16 [History] Omeprazole 40 mg PO BID 12/25/20 [History] Rivaroxaban [Xarelto] 20 mg PO DAILY 12/25/20 [History] Tamsulosin [Flomax] 0.4 mg PO DAILY 12/25/20 [History] lisinopriL [Lisinopril] 10 mg PO DAILY 12/25/20 [History] traZODone 1 tab PO ASDIRECTED PRN 12/25/20 [History] Furosemide 80 mg PO DAILY #30 tablet 12/29/20 [Rx] Metoprolol Succinate 100 mg PO DAILY #30 tab.er.24h 12/29/20 [Rx] Referrals: Ban Latham MD [Primary Care Provider] - 01/03/21 1:30 pm (Please arrive 15 minutes early to register for your appointment.) - Discharge Summary/Plan Comment DC Time >30 min.: No - Patient Data Vitals - Most Recent: Last Vital Signs Temp 97.6 F 12/29/20 08:00 Pulse 67 12/29/20 08:28 Resp 16 12/29/20 08:00 BP 113/58 L 12/29/20 08:28 Pulse Ox 93 L 12/29/20 08:00 Weight - Most Recent: 214 lb I&O - Last 24 hours: Intake & Output 12/28/20 12/29/20 12/29/20 22:59 06:59 14:59 Intake Total 1000 480 Output Total 1130 100 Balance -130 380 Lab Results - Last 24 hrs: Laboratory Results - last 24 hr 12/29/20 Range/Units 05:45 Sodium 141 (140-148) mmol/L Potassium 4.2 (3.6-5.2) mmol/L Chloride 102 (100-108) mmol/L Carbon Dioxide 31 (21-32) mmol/L Anion Gap 8.0 (5.0-14.0) mmol/L BUN 21 H (7-18) mg/dL Creatinine 1.2 (0.8-1.3) mg/dL Est Cr Clr Drug Dosing 46.87 mL/min Estimated GFR (MDRD) 57 L (>60) Glucose 94 (74-106) mg/dL Calcium 8.4 L (8.5-10.1) mg/dL NELLY Results - Last 24 hrs: Microbiology 12/25/20 12:00 Aerobic Blood Culture - Preliminary Blood - Arm, Right NO GROWTH AFTER 3 DAYS Anaerobic Blood Culture - Preliminary NO GROWTH AFTER 3 DAYS 12/25/20 12:00 Aerobic Blood Culture - Preliminary Blood - Arm, Left NO GROWTH AFTER 3 DAYS Anaerobic Blood Culture - Preliminary NO GROWTH AFTER 3 DAYS Med Orders - Current: Current Medications Acetaminophen (Acetaminophen 325 Mg Tab) 650 mg PO Q4H PRN PRN Reason: Pain (Mild 1-3)/fever Albuterol (Albuterol 0.083% 2.5 Mg/3 Ml Neb Soln) 2.5 mg NEB Q4H PRN PRN Reason: Shortness Of Breath/wheezing Aspirin (Aspirin 81 Mg Tab.Ec) 81 mg PO DAILY [facility] Last Admin: 12/29/20 08:27 Dose: 81 mg Documented by: Atorvastatin Calcium (Atorvastatin 10 Mg Tab) 10 mg PO BEDTIME [facility] Last Admin: 12/28/20 20:09 Dose: 10 mg Documented by: Lisinopril (Lisinopril 10 Mg Tab) 10 mg PO DAILY [facility] Last Admin: 12/29/20 08:27 Dose: 10 mg Documented by: Metoprolol Succinate (Metoprolol Succinate 50 Mg Tab.Er) 100 mg PO DAILY [facility] Last Admin: 12/29/20 08:28 Dose: 100 mg Documented by: Ondansetron HCl (Ondansetron 4 Mg/2 Ml Sdv) 4 mg IV Q4H PRN PRN Reason: Nausea/Vomiting Pantoprazole Sodium (Pantoprazole 40 Mg Tab.Cr) 40 mg PO BIDAC [facility] Last Admin: 12/29/20 08:26 Dose: 40 mg Documented by: Polyethylene Glycol (Polyethylene Glycol 3350 Powder 17 Gm Packet) 17 gm PO DAILY PRN PRN Reason: Constipation Rivaroxaban (Rivaroxaban 15 Mg Tab) 15 mg PO DAILY@0800 [facility] Last Admin: 12/29/20 08:26 Dose: 15 mg Documented by: Sodium Chloride (Sodium Chloride 0.9% 10 Ml Syringe) 10 ml FLUSH ASDIRECTED PRN PRN Reason: Keep Vein Open Last Admin: 12/26/20 10:52 Dose: 10 ml Documented by: Tamsulosin HCl (Tamsulosin 0.4 Mg Cap.Er) 0.4 mg PO DAILY [facility] Last Admin: 12/29/20 08:27 Dose: 0.4 mg Documented by: Trazodone HCl (Trazodone 50 Mg Tab) 50 mg PO BEDTIME PRN PRN Reason: Sleep Last Admin: 12/28/20 20:50 Dose: 50 mg Documented by: Discontinued Medications Albuterol (Albuterol 0.083% 2.5 Mg/3 Ml Neb Soln) 2.5 mg NEB ONETIME ONE Stop: 12/26/20 10:16 Last Admin: 12/26/20 10:45 Dose: 2.5 mg Documented by: Diltiazem HCl (Diltiazem 25 Mg/5 Ml Sdv) 20 mg IVPUSH ONETIME ONE Stop: 12/25/20 09:00 Last Admin: 12/25/20 09:04 Dose: 20 mg Documented by: Furosemide (Furosemide 40 Mg/4 Ml Vial) 80 mg IVPUSH ONETIME ONE Stop: 12/25/20 09:00 Last Admin: 12/25/20 09:07 Dose: 80 mg Documented by: Furosemide (Furosemide 40 Mg/4 Ml Vial) 80 mg IVPUSH ONETIME ONE Stop: 12/25/20 17:43 Last Admin: 12/25/20 17:54 Dose: 80 mg Documented by: Furosemide (Furosemide 40 Mg/4 Ml Vial) 80 mg IVPUSH ONETIME ONE Stop: 12/26/20 09:01 Last Admin: 12/26/20 09:41 Dose: 80 mg Documented by: Furosemide (Furosemide 40 Mg/4 Ml Vial) 80 mg IVPUSH ONETIME ONE Stop: 12/26/20 18:01 Last Admin: 12/26/20 17:40 Dose: 80 mg Documented by: Furosemide (Furosemide 40 Mg/4 Ml Vial) 80 mg IVPUSH ONETIME ONE Stop: 12/27/20 10:01 Last Admin: 12/27/20 10:48 Dose: 80 mg Documented by: Furosemide (Furosemide 40 Mg/4 Ml Vial) 80 mg IVPUSH ONETIME ONE Stop: 12/27/20 18:01 Last Admin: 12/27/20 17:14 Dose: 80 mg Documented by: Furosemide (Furosemide 40 Mg/4 Ml Vial) 80 mg IVPUSH ONETIME ONE Stop: 12/28/20 08:31 Last Admin: 12/28/20 08:59 Dose: 80 mg Documented by: Furosemide (Furosemide 40 Mg/4 Ml Vial) 80 mg IVPUSH ONETIME ONE Stop: 12/28/20 18:01 Last Admin: 12/28/20 17:25 Dose: 80 mg Documented by: Furosemide (Furosemide 40 Mg/4 Ml Vial) 80 mg IVPUSH ONETIME ONE Stop: 12/29/20 08:31 Last Admin: 12/29/20 08:35 Dose: 80 mg Documented by: Diltiazem HCl 100 mg/ Sodium (Chloride) 100 mls @ 5 mls/hr IV TITRATE JACQUELINE; Protocol Stop: 12/25/20 17:30 Last Titration: 12/25/20 16:58 Dose: Infused Documented by: Ceftriaxone Sodium 1 gm/ (Sodium Chloride) 50 mls @ 100 mls/hr IV Q24H [facility] Last Admin: 12/25/20 11:48 Dose: 100 mls/hr Documented by: Doxycycline Hyclate 100 mg/ (Sodium Chloride) 100 mls @ 100 mls/hr IV Q12H [facility] Last Admin: 12/25/20 23:24 Dose: 100 mls/hr Documented by: Diltiazem HCl 125 mg/ Sodium (Chloride) 125 mls @ 5 mls/hr IV TITRATE JACQUELINE; Protocol Last Titration: 12/26/20 04:00 Dose: 5 mg/hr, 5 mls/hr Documented by: Sodium Chloride (Normal Saline) 1,000 mls @ 125 mls/hr IV ASDIRECTED [facility] Ceftriaxone Sodium 1 gm/ (Sodium Chloride) 50 mls @ 100 mls/hr IV Q24H [facility] Magnesium Sulfate (Magnesium Sulfate In Water 2 Gm/50 Ml) 2 gm in 50 mls @ 12.5 mls/hr IV ONETIME ONE Stop: 12/25/20 21:38 Last Admin: 12/25/20 17:54 Dose: 12.5 mls/hr Documented by: Potassium Chloride 20 meq/Lidocaine HCl 2 ml/ Sodium Chloride 112 mls @ 50 mls/hr IV ONETIME ONE Stop: 12/26/20 09:44 Last Admin: 12/26/20 07:54 Dose: 50 mls/hr Documented by: Magnesium Sulfate (Magnesium Sulfate In Water 2 Gm/50 Ml) 2 gm in 50 mls @ 25 mls/hr IV Q6H [facility] Stop: 12/26/20 23:59 Last Admin: 12/26/20 21:09 Dose: 25 mls/hr Documented by: Sodium Chloride (Normal Saline) 90 mls @ 3.5 mls/sec IV ASDIRECTED [facility] Stop: 12/26/20 14:00 Last Admin: 12/26/20 10:52 Dose: 3.5 mls/sec Documented by: Iopamidol (Iopamidol 755 Mg/Ml 100 Ml Bottle) 90 ml IV . DIRECTED JACQU[facility]INE Stop: 12/26/20 12:00 Last Admin: 12/26/20 10:52 Dose: 90 ml Documented by: Metoprolol Tartrate (Metoprolol Tartrate 25 Mg Tab) 12.5 mg PO Q6H [facility] Last Admin: 12/26/20 12:35 Dose: 12.5 mg Documented by: Metoprolol Tartrate (Metoprolol Tartrate 25 Mg Tab) 25 mg PO Q6H [facility] Stop: 12/29/20 08:00 Last Admin: 12/29/20 05:46 Dose: 25 mg Documented by: Metoprolol Tartrate (Metoprolol Tartrate 25 Mg Tab) 12.5 mg PO ONETIME ONE Stop: 12/26/20 13:31 Last Admin: 12/26/20 13:34 Dose: 12.5 mg Documented by: Potassium Chloride (Potassium Chloride 20 Meq Tab.Er) 40 meq PO ONETIME ONE Stop: 12/26/20 06:21 Last Admin: 12/26/20 06:27 Dose: 40 meq Documented by: Potassium Chloride (Potassium Chloride 20 Meq Tab.Er) 40 meq PO ONETIME ONE Stop: 12/26/20 12:01 Last Admin: 12/26/20 12:35 Dose: 40 meq Documented by: Potassium Chloride (Potassium Chloride 20 Meq Tab.Er) 40 meq PO ONETIME ONE Stop: 12/26/20 17:01 Last Admin: 12/26/20 17:39 Dose: 40 meq Documented by: Potassium Chloride (Potassium Chloride 20 Meq Tab.Er) 40 meq PO ONETIME ONE Stop: 12/27/20 17:01 Last Admin: 12/27/20 17:12 Dose: 40 meq Documented by: Potassium Chloride (Potassium Chloride 20 Meq Tab.Er) 40 meq PO ONETIME ONE Stop: 12/28/20 17:01 Last Admin: 12/28/20 17:27 Dose: 40 meq Documented by: Propofol (Propofol 200 Mg/20 Ml Sdv) 200 mg IVPUSH ONETIME ONE Stop: 12/25/20 09:58 Last Admin: 12/25/20 10:30 Dose: 200 mg Documented by: Regadenoson (Regadenoson 0.4 Mg/5 Ml Syringe) 0.4 mg IVPUSH ONETIME ONE Stop: 12/27/20 10:31 Last Admin: 12/27/20 10:24 Dose: 0.4 mg Documented by: Sodium Chloride (Sodium Chloride 0.9% 10 Ml Syringe) 10 ml FLUSH ONETIME ONE Stop: 12/26/20 10:12 Last Admin: 12/26/20 12:36 Dose: 10 ml Documented by: - Exam Quality Assessment: Reports: Supplemental Oxygen, DVT Prophylaxis General: Reports: Alert, Oriented, Cooperative, Mild Distress Lungs: Reports: Clear to Auscultation, Normal Respiratory Effort Cardiovascular: Reports: Regular Rate, Regular Rhythm, No Murmurs GI/Abdominal Exam: Soft, Non-Tender, No Organomegaly, No Distention Extremities: Non-Tender, No Pedal Edema *Q Meaningful Use (DIS) - VTE *Q VTE Pharmacological Contraindications *Q: High INR Value
== END 2020-12-29 12:56 | disposition home or self-care (01) | DRG 291 ==
LOC: JP.ED 08:52 → JP.ICU 11:31
PROVIDERS: ADMIT Hospitalist; ATTEND Hospitalist
DX: I13.0 Hypertensive heart and chronic kidney disease with heart failure and stage 1 through stage 4 chronic kidney disease, or unspecified chronic kidney disease (principal); I50.43 Acute on chronic combined systolic (congestive) and diastolic (congestive) heart failure; I50.9 Heart failure, unspecified; J18.9 Pneumonia, unspecified organism; I10 Essential (primary) hypertension; I72.9 Aneurysm of unspecified site; J96.01 Acute respiratory failure with hypoxia; I48.92 Unspecified atrial flutter; Z66 Do not resuscitate; I24.8 Other forms of acute ischemic heart disease; N40.1 Benign prostatic hyperplasia with lower urinary tract symptoms; R35.0 Frequency of micturition; H26.9 Unspecified cataract; I73.9 Peripheral vascular disease, unspecified; I48.91 Unspecified atrial fibrillation; E78.00 Pure hypercholesterolemia, unspecified; Z20.822 Contact with and (suspected) exposure to COVID-19; G89.29 Other chronic pain; M54.9 Dorsalgia, unspecified; N18.31 Chronic kidney disease, stage 3a; Z87.891 Personal history of nicotine dependence; Z86.711 Personal history of pulmonary embolism; Z79.01 Long term (current) use of anticoagulants; Z79.82 Long term (current) use of aspirin; Z79.899 Other long term (current) drug therapy; Z98.49 Cataract extraction status, unspecified eye
CPT/HCPCS: 0241U; 36415; 71045; 71045-26; 71275; 71275-26; 78452; 80048; 80053; 83605; 83735; 83880; 84145; 84484; 85025; 86140; 87040; 92960; 93005; 93017; 94060; 94729; 96365; 96375; 96376; 97162-GP; 97530-GP; 97535-GP; 99285; 99285-25; A9270-GY; A9500; J0696; J1940; J2704; J2785; J3475; J3480; J3490; Q9967

== ENCOUNTER 2022-03-11 11:05 | Emergency (ER) | payer MEDICARE ==
[2022-03-11] MEDS ORDERED: Diltiazem 25 MG/5 ML SDV IVPUSH ONE (13:00)
[2022-03-11 13:33] VITALS: BP 125/89; PULSE 88
[2022-03-11 13:45] LABS: TROPONIN I HIGH SENSITIVITY 21.1 pg/mL (<=60.3)
== END 2022-03-11 14:49 | disposition left against medical advice (07) ==
LOC: JP.ED 11:05
DX: I47.1 Supraventricular tachycardia (principal); E78.00 Pure hypercholesterolemia, unspecified; I10 Essential (primary) hypertension; N40.0 Benign prostatic hyperplasia without lower urinary tract symptoms; Z79.82 Long term (current) use of aspirin; Z79.899 Other long term (current) drug therapy; Z87.891 Personal history of nicotine dependence
CPT/HCPCS: 36415; 71045; 80048; 80307; 83735; 84443; 84484; 85025; 96374; 99285; J3490; 99282

== ENCOUNTER 2022-03-13 10:51 | Emergency (ER) | payer MEDICARE ==
[2022-03-13] MEDS ORDERED: Diltiazem IR 30 MG Tab PO ONE (11:32)
[2022-03-13] MEDS ORDERED: Diltiazem 25 MG/5 ML SDV IVPUSH ONE (12:10)
[2022-03-13 13:29] VITALS: PULSE 72
[2022-03-13 13:46] VITALS: BP 130/82
== END 2022-03-13 13:45 | disposition home or self-care (01) ==
LOC: JP.ED 10:51
DX: I13.0 Hypertensive heart and chronic kidney disease with heart failure and stage 1 through stage 4 chronic kidney disease, or unspecified chronic kidney disease (principal); I50.9 Heart failure, unspecified; N18.30 Chronic kidney disease, stage 3 unspecified; D64.9 Anemia, unspecified; E78.00 Pure hypercholesterolemia, unspecified; I10 Essential (primary) hypertension; Z79.899 Other long term (current) drug therapy; Z79.82 Long term (current) use of aspirin
CPT/HCPCS: 36415; 85025; 93005; 96374; 99285; A9270; J3490; 93010; 99283

== ENCOUNTER 2022-10-02 13:49 | Emergency (ER) | payer MEDICARE ==
[2022-10-02] MEDS ORDERED: Sodium Chloride 0.9% 10 ML Syringe FLUSH PRN (13:57)
[2022-10-02 14:03] VITALS: BP 196/104; PULSE 123
[2022-10-02] MEDS ORDERED: Diltiazem 25 MG/5 ML SDV IVPUSH ONE (14:06)
[2022-10-02 14:33] LABS: ESTIMATED GFR 30 mL/min (>60); TROPONIN I HIGH SENSITIVITY 18.2 pg/mL (<=60.3)
== END 2022-10-02 15:16 | disposition home or self-care (01) ==
LOC: JP.ED 13:49
DX: I48.0 Paroxysmal atrial fibrillation (principal); I13.0 Hypertensive heart and chronic kidney disease with heart failure and stage 1 through stage 4 chronic kidney disease, or unspecified chronic kidney disease; N18.4 Chronic kidney disease, stage 4 (severe); I50.9 Heart failure, unspecified; N40.0 Benign prostatic hyperplasia without lower urinary tract symptoms; Z79.82 Long term (current) use of aspirin; Z79.899 Other long term (current) drug therapy; Z87.891 Personal history of nicotine dependence
CPT/HCPCS: 36415; 71045; 80053; 83605; 83880; 84484; 85025; 93005; 96374; 99285; J3490; 93010; 99283